=== PATIENT | female | born 1930 | race Two or more races ===

== ENCOUNTER 2016-09-14 19:00 | Inpatient (IN) | payer OTHER, MEDICAID ==
[~2016-09-14] VITALS: Ht 167.6 cm; Wt 82.4 kg
[~2016-09-14 19:00] MED LIST: ALLO300T2 PO; ATO40T PO; COLCPOW2 PO; DIL120C PO; HYDR25TA4 PO; INSUPOW SUBCUT; LIS10T PO; NITR0.4S29 SL; OMEP20TA PO; TEMA30CA PO
[2016-09-14 20:20] LABS: Basophils # (auto) 0 uL; Basophils % (auto) 0.3 % (0.0-2.0); Eosinophils # (auto) 0.2 uL; Eosinophils % (auto) 2.4 % (0.0-7.0); Hematocrit 39.8 % (36.0-46.0); Hemoglobin 12.9 g/dL (12.2-16.2); Lymphocytes # (auto) 1.8 uL; Lymphocytes % (auto) 18.8 % (10.0-50.0); Mean Corpuscular Hemoglobin 31.5 pg (28.0-32.0); Mean Corpuscular Hgb Conc. 32.5 g/dL (32.0-36.0); Mean Corpuscular Volume 97.2 fL (80.0-100.0); Mean Platelet Volume 8.5 fL (7.4-10.4); Monocytes # (auto) 0.7 uL; Monocytes % (auto) 6.9 % (0.0-12.0); Neutrophils # (auto) 6.9 uL; Neutrophils % (auto) 71.6 % (37.0-80.0); Platelet Count (auto) 252 10^3/uL (140-450); Red Cell Distribution Width 15.4 % (11.6-16.0); White Blood Cell 9.6 10^3/uL (4.4-10.8)
[2016-09-14 20:31] LABS: Albumin 3.3 g/dL (3.4-5.0); BUN/Creatinine Ratio 18.6; Calcium 9.1 mg/dL (8.5-10.1); Potassium 4.2 mmol/L (3.5-5.1)
[2016-09-14 20:34] LABS: Bilirubin, Total 0.2 mg/dL (0.2-1.0); Total Protein 7.1 g/dL (6.4-8.2)
[2016-09-14 20:35] LABS: INR 1.01 (0.9-1.15); Partial Thromboplastin Time 26.6 sec (22.64-33.71); Prothrombin Time 10.4 sec (9.37-12.3)
[2016-09-14 20:38] LABS: B-Type Natriuretic Peptide 65.59 pg/mL (0-100)
[2016-09-14 20:47] LABS: Temperature: 21.4 C (20.0-25.0)
[2016-09-15] VITALS (7 sets, daily range): BP systolic 114–140; BP diastolic 47–73
[2016-09-15] MEDS ORDERED: ONDANSETRON HCL 4 MG/2 ML VIAL IV PRN
[2016-09-15] MEDS ORDERED: DEXTROSE (50%) 50ML SYRG IV PRN
[2016-09-15] MEDS ORDERED: NITROGLYCERIN 0.4 MG SL TAB SL PRN
[2016-09-15] MEDS ORDERED: MORPHINE SULF INJ 2 MG/ML SYRINGE 1ML IV PRN
[2016-09-15] MEDS ORDERED: HYDROcodone-ACET 5/325MG TAB PO PRN
[2016-09-15] MEDS ORDERED: ACETAMINOPHEN 325 MG TAB PO PRN
[2016-09-15] MEDS: InsuLIN REG 1unit/0.01ml Soln (100units/ml) SC SCH ×4 (00:32→18:00)
[2016-09-15] MEDS: ACCU-CHEK COMFORT CURVE STRIP VI SCH ×4 (00:32→18:00)
[2016-09-15] MEDS ORDERED: NITR0.4S29 SL (04:03)
[2016-09-15 05:56] LABS: Potassium 4.4 mmol/L (3.5-5.1)
[2016-09-15 06:04] LABS: Basophils # (auto) 0 uL; Basophils % (auto) 0.6 % (0.0-2.0); Eosinophils # (auto) 0.3 uL; Eosinophils % (auto) 3.8 % (0.0-7.0); Hemoglobin 11.2 g/dL (12.2-16.2); Lymphocytes # (auto) 2.3 uL; Lymphocytes % (auto) 29.1 % (10.0-50.0); Mean Corpuscular Hemoglobin 31.4 pg (28.0-32.0); Mean Corpuscular Volume 98.3 fL (80.0-100.0); Mean Platelet Volume 8.9 fL (7.4-10.4); Monocytes # (auto) 0.6 uL; Monocytes % (auto) 7.3 % (0.0-12.0); Neutrophils # (auto) 4.6 uL; Neutrophils % (auto) 59.2 % (37.0-80.0); Platelet Count (auto) 221 10^3/uL (140-450); Red Cell Distribution Width 15.5 % (11.6-16.0); White Blood Cell 7.8 10^3/uL (4.4-10.8)
[2016-09-15 06:08] LABS: Albumin 2.8 g/dL (3.4-5.0); BUN/Creatinine Ratio 20.2; Calcium 8.3 mg/dL (8.5-10.1)
[2016-09-15 06:10] LABS: Bilirubin, Total 0.5 mg/dL (0.2-1.0)
[2016-09-15] MEDS ORDERED: LISINOPRIL 20 MG TAB PO SCH (10:00)
[2016-09-15] MEDS ORDERED: FAMOTIDINE 20 MG TAB PO SCH (10:00)
[2016-09-15] MEDS ORDERED: HCTZ 25 MG TAB PO SCH (10:00)
[2016-09-15] MEDS ORDERED: ALLOPURINOL 300 MG TAB PO SCH (10:00)
[2016-09-15] MEDS ORDERED: ENOXAPARIN SOD 40 MG/0.4 ML SYRINGE SC SCH (10:00)
[2016-09-15] MEDS ORDERED: DILTIAZEM HCL 120MG ER CAP PO SCH (10:00)
[2016-09-15] MEDS ORDERED: ATORVASTATIN 20 MG TAB PO SCH (22:00)
== END 2016-09-15 20:40 | disposition home or self-care (01) | DRG 309 ==
LOC: EDUNIT# 19:00 → ER 19:02 → TELE 19:03 → TELE-CENTR 09-15 01:15
PROVIDERS: ADMIT Nurse Practitioner; ATTEND Internal Medicine
DX: I47.1 Supraventricular tachycardia (principal); E44.0 Moderate protein-calorie malnutrition; E11.21 Type 2 diabetes mellitus with diabetic nephropathy; I35.0 Nonrheumatic aortic (valve) stenosis; K21.9 Gastro-esophageal reflux disease without esophagitis; M10.9 Gout, unspecified; E11.65 Type 2 diabetes mellitus with hyperglycemia; E11.22 Type 2 diabetes mellitus with diabetic chronic kidney disease; N18.3 Chronic kidney disease, stage 3 (moderate); E78.5 Hyperlipidemia, unspecified; D64.9 Anemia, unspecified; I25.10 Atherosclerotic heart disease of native coronary artery without angina pectoris; I12.9 Hypertensive chronic kidney disease with stage 1 through stage 4 chronic kidney disease, or unspecified chronic kidney disease; Z68.29 Body mass index [BMI] 29.0-29.9, adult; Z82.49 Family history of ischemic heart disease and other diseases of the circulatory system; Z83.3 Family history of diabetes mellitus; Z90.49 Acquired absence of other specified parts of digestive tract; Z79.899 Other long term (current) drug therapy; Z79.4 Long term (current) use of insulin; Z91.14 Patient's other noncompliance with medication regimen; Z80.9 Family history of malignant neoplasm, unspecified; Z84.89 Family history of other specified conditions
CPT/HCPCS: 36415; 71010; 80053; 82962; 83036; 83880; 84484; 85025; 85049; 85610; 85730; 87081; 93005; 93306

== ENCOUNTER 2016-12-24 02:13 | Inpatient (IN) | payer OTHER, MEDICAID ==
[~2016-12-24] VITALS: Ht 167.6 cm; Wt 84.5 kg
[2016-12-24 02:58] LABS: Basophils # (auto) 0 uL; Basophils % (auto) 0.6 % (0.0-2.0); Eosinophils # (auto) 0.2 uL; Eosinophils % (auto) 2.1 % (0.0-7.0); Hemoglobin 11.6 g/dL (12.2-16.2); Lymphocytes # (auto) 1.2 uL; Lymphocytes % (auto) 14.9 % (10.0-50.0); Mean Corpuscular Hemoglobin 31.5 pg (28.0-32.0); Mean Corpuscular Hgb Conc. 32.2 g/dL (32.0-36.0); Mean Corpuscular Volume 97.7 fL (80.0-100.0); Mean Platelet Volume 9.1 fL (7.4-10.4); Monocytes # (auto) 0.5 uL; Monocytes % (auto) 6.5 % (0.0-12.0); Neutrophils # (auto) 6.1 uL; Neutrophils % (auto) 75.9 % (37.0-80.0); Platelet Count (auto) 227 10^3/uL (140-450); Red Cell Distribution Width 18.8 % (11.6-16.0); White Blood Cell 8.1 10^3/uL (4.4-10.8)
[2016-12-24 03:31] LABS: Albumin 3.1 g/dL (3.4-5.0); Alkaline Phosphatase 150 U/L (45-117); Anion Gap 9 (5-15); Aspartate Aminotransferase 8 U/L (15-37); BUN/Creatinine Ratio 19.4; Bilirubin, Total 0.4 mg/dL (0.2-1.0); Blood Urea Nitrogen 27 mg/dL (7-18); Calcium 8.5 mg/dL (8.5-10.1); Carbon Dioxide 23 mmol/L (21-32); Chloride 109 mmol/L (98-107); GFR African American 46 mL/min; GFR Non-African American 38 mL/min; Glucose 177 mg/dL (74-106); Magnesium 2.3 mg/dL (1.6-2.6); Potassium 4.5 mmol/L (3.5-5.1); Sodium 141 mmol/L (136-145); Total Protein 6.6 g/dL (6.4-8.2)
[2016-12-24] MEDS ORDERED: NITROGLYCERIN 0.2MG/HR TOPICAL PATCH TD ONE (04:00)
[2016-12-24] MEDS ORDERED: ASPirin 81 mg TAB PO ONE (04:00)
[2016-12-24 04:42] LABS: B-Type Natriuretic Peptide 93.6 pg/mL (0-100); Temperature: 22.2 C (20.0-25.0)
[2016-12-24 04:43] LABS: INR 0.97 (0.9-1.15); Partial Thromboplastin Time 27.8 sec (22.64-33.71); Prothrombin Time 10.5 sec (9.37-12.3)
[2016-12-24 05:59] LABS: Urine Bilirubin Negative (Negative); Urine Blood Negative /uL (Negative); Urine Color Yellow (Yellow); Urine Glucose Normal (Normal); Urine Ketone Negative (Negative); Urine Nitrite Negative (Negative); Urine RBC 1 /hpf (0 - 4); Urine Squamous Epithelial Cell FEW /hpf (<5); Urine Urobilinogen Normal (Negative); Urine pH 5.5 (5.0-8.0)
[2016-12-24] MEDS ORDERED: LORazepam 0.5 MG TAB PO PRN (06:15)
[2016-12-24] MEDS ORDERED: LACTULOSE 20Gm/30ML SOLN PO PRN (06:15)
[2016-12-24] MEDS ORDERED: DEXTROSE (50%) 50ML SYRG IV PRN (06:15)
[2016-12-24] MEDS ORDERED: PROCHLORPERAZINE EDISYLATE 5 MG/ML 2ML VIAL IV PRN (06:15)
[2016-12-24] MEDS ORDERED: NITROGLYCERIN 0.4 MG SL TAB SL PRN (06:15)
[2016-12-24] MEDS ORDERED: MORPHINE SULF INJ 2 MG/ML SYRINGE 1ML IV PRN ×2 (06:15)
[2016-12-24] MEDS ORDERED: ACETAMINOPHEN 500 MG TAB PO PRN (06:15)
[2016-12-24] MEDS ORDERED: COLCHICINE PO PRN (06:15)
[2016-12-24] MEDS ORDERED: TEMAZEPAM 15 MG CAP PO PRN (06:15)
[2016-12-24] MEDS ORDERED: HYDROcodone-ACET 5/325MG TAB PO PRN (06:15)
[2016-12-24] MEDS: SODIUM CHLORIDE 0.9% 1,000 ML IV SCH ×4 (06:40→23:12)
[2016-12-24] MEDS: InsuLIN REG 1unit/0.01ml Soln (100units/ml) SC SCH ×4 (07:00→21:52)
[2016-12-24 08:50] VITALS: BP 145/76
[2016-12-24] MEDS ORDERED: COLCHICINE 0.6 MG CAP PO PRN (09:30)
[2016-12-24] MEDS ORDERED: METOPROLOL TARTRATE 25 MG TAB PO SCH (10:00)
[2016-12-24] MEDS ORDERED: DILTIAZEM HCL 120MG ER CAP PO SCH (10:00)
[2016-12-24] MEDS ORDERED: PATIENTS OWN MEDICATION (Omeprazole (Gnp Omeprazole) 1 TAB) PO SCH (10:00)
[2016-12-24] MEDS ORDERED: PATIENTS OWN MEDICATION (Atorvastatin Calcium (Lipitor) 1 TAB) PO SCH ×2 (10:00)
[2016-12-24] MEDS ORDERED: NITROGLYCERIN 0.2MG/HR TOPICAL PATCH TD SCH (10:00)
[2016-12-24] MEDS: ACCU-CHEK COMFORT CURVE STRIP VI SCH ×4 (10:00→21:52)
[2016-12-24] MEDS ORDERED: INSULIN SUBCUT SCH (10:00)
[2016-12-24] MEDS: ASPirin 81 mg TAB PO SCH (10:25)
[2016-12-24] MEDS: ALLOPURINOL 300 MG TAB PO SCH (10:25)
[2016-12-24] MEDS: LISINOPRIL 10 MG TAB PO SCH (10:26)
[2016-12-24] MEDS: PANTOPRAZOLE 40 MG TAB PO SCH (10:26)
[2016-12-24] MEDS: INSULIN NPH Isophane (HUMAN) 1unit/0.01ml Susp(100units/ml) SC SCH ×2 (10:27→21:52)
[2016-12-24] MEDS: ENOXAPARIN SOD 40 MG/0.4 ML SYRINGE SC SCH (10:27)
[2016-12-24] MEDS ORDERED: DILTIAZEM HCL 120MG ER CAP PO ONE (11:00)
[2016-12-24] MEDS ORDERED: cefTRIAXone 1GM/50ML D5W 50 ML IV ONE (11:15)
[2016-12-24 11:22] VITALS: BP 145/76
[2016-12-24 13:00] VITALS: BP 150/72
[2016-12-24 16:48] VITALS: BP 104/42
[2016-12-24 20:00] VITALS: BP 126/54
[2016-12-24] MEDS: ATORVASTATIN 20 MG TAB PO SCH (21:52)
[2016-12-24 22:00] VITALS: BP 126/54
[2016-12-25] VITALS (7 sets, daily range): BP systolic 120–153; BP diastolic 46–82
[2016-12-25 05:26] LABS: Basophils # (auto) 0 uL; Basophils % (auto) 0.4 % (0.0-2.0); Eosinophils # (auto) 0.4 uL; Eosinophils % (auto) 5.7 % (0.0-7.0); Hemoglobin 10.3 g/dL (12.2-16.2); Lymphocytes % (auto) 27.3 % (10.0-50.0); Mean Corpuscular Hemoglobin 31.3 pg (28.0-32.0); Mean Corpuscular Volume 97.6 fL (80.0-100.0); Mean Platelet Volume 8.8 fL (7.4-10.4); Monocytes # (auto) 0.6 uL; Monocytes % (auto) 7.7 % (0.0-12.0); Neutrophils # (auto) 4.3 uL; Neutrophils % (auto) 58.9 % (37.0-80.0); Platelet Count (auto) 212 10^3/uL (140-450); White Blood Cell 7.3 10^3/uL (4.4-10.8)
[2016-12-25 06:09] LABS: Albumin 2.7 g/dL (3.4-5.0); BUN/Creatinine Ratio 18.3; Bilirubin, Total 0.4 mg/dL (0.2-1.0); Potassium 4.5 mmol/L (3.5-5.1); Total Protein 5.8 g/dL (6.4-8.2)
[2016-12-25] MEDS: InsuLIN REG 1unit/0.01ml Soln (100units/ml) SC SCH ×4 (06:45→21:51)
[2016-12-25] MEDS: ACCU-CHEK COMFORT CURVE STRIP VI SCH ×4 (06:45→21:51)
[2016-12-25] MEDS ORDERED: ADENOSINE 71 MG in GIVE UN-DILUTED 0 ML IV STA (08:14)
[2016-12-25] MEDS: cefTRIAXone 1GM/50ML D5W 50 ML IV SCH (08:30)
[2016-12-25] MEDS: ASPirin 81 mg TAB PO SCH (11:16)
[2016-12-25] MEDS: LISINOPRIL 10 MG TAB PO SCH (11:17)
[2016-12-25] MEDS: PANTOPRAZOLE 40 MG TAB PO SCH (11:17)
[2016-12-25] MEDS: ALLOPURINOL 300 MG TAB PO SCH (11:18)
[2016-12-25] MEDS: DILTIAZEM HCL 120MG ER CAP PO SCH (11:18)
[2016-12-25] MEDS: ENOXAPARIN SOD 40 MG/0.4 ML SYRINGE SC SCH (11:18)
[2016-12-25] MEDS: INSULIN NPH Isophane (HUMAN) 1unit/0.01ml Susp(100units/ml) SC SCH ×2 (11:19→21:52)
[2016-12-25] MEDS: ATORVASTATIN 20 MG TAB PO SCH (21:51)
[2016-12-26 04:32] VITALS: BP 118/53
[2016-12-26] MEDS: ACCU-CHEK COMFORT CURVE STRIP VI SCH ×4 (06:46→21:51)
[2016-12-26] MEDS: InsuLIN REG 1unit/0.01ml Soln (100units/ml) SC SCH ×4 (06:46→21:50)
[2016-12-26 08:07] VITALS: BP 158/78
[2016-12-26] MEDS: cefTRIAXone 1GM/50ML D5W 50 ML IV SCH (09:17)
[2016-12-26] MEDS: DILTIAZEM HCL 120MG ER CAP PO SCH (09:51)
[2016-12-26] MEDS: ENOXAPARIN SOD 40 MG/0.4 ML SYRINGE SC SCH (09:51)
[2016-12-26] MEDS: ASPirin 81 mg TAB PO SCH (09:52)
[2016-12-26] MEDS: ALLOPURINOL 300 MG TAB PO SCH (09:52)
[2016-12-26] MEDS: LISINOPRIL 10 MG TAB PO SCH (09:52)
[2016-12-26] MEDS: PANTOPRAZOLE 40 MG TAB PO SCH (09:52)
[2016-12-26] MEDS: INSULIN NPH Isophane (HUMAN) 1unit/0.01ml Susp(100units/ml) SC SCH ×2 (10:24→21:51)
[2016-12-26 12:16] VITALS: BP 129/71
[2016-12-26 16:42] VITALS: BP 147/69
[2016-12-26 21:39] VITALS: BP 141/64
[2016-12-26] MEDS: ATORVASTATIN 20 MG TAB PO SCH (21:49)
[2016-12-27 05:00] VITALS: BP 130/61
[2016-12-27 05:46] LABS: Basophils # (auto) 0 uL; Basophils % (auto) 0.4 % (0.0-2.0); Eosinophils # (auto) 0.4 uL; Eosinophils % (auto) 5.2 % (0.0-7.0); Hematocrit 33.8 % (36.0-46.0); Lymphocytes % (auto) 25.4 % (10.0-50.0); Mean Corpuscular Hemoglobin 31.6 pg (28.0-32.0); Mean Corpuscular Hgb Conc. 32.5 g/dL (32.0-36.0); Mean Corpuscular Volume 97.1 fL (80.0-100.0); Mean Platelet Volume 9.6 fL (7.4-10.4); Monocytes # (auto) 0.5 uL; Neutrophils # (auto) 4.8 uL; Platelet Count (auto) 223 10^3/uL (140-450); White Blood Cell 7.7 10^3/uL (4.4-10.8)
[2016-12-27 06:03] LABS: Calcium 8.6 mg/dL (8.5-10.1); Magnesium 1.9 mg/dL (1.6-2.6); Potassium 4.4 mmol/L (3.5-5.1)
[2016-12-27 06:06] LABS: BUN/Creatinine Ratio 17.5
[2016-12-27] MEDS: ACCU-CHEK COMFORT CURVE STRIP VI SCH (06:31)
[2016-12-27] MEDS: InsuLIN REG 1unit/0.01ml Soln (100units/ml) SC SCH (06:31)
[2016-12-27 09:00] VITALS: BP 150/62
[2016-12-27] MEDS: cefTRIAXone 1GM/50ML D5W 50 ML IV SCH (09:00)
[2016-12-27] MEDS: ALLOPURINOL 300 MG TAB PO SCH (09:50)
[2016-12-27] MEDS: LISINOPRIL 10 MG TAB PO SCH (09:52)
[2016-12-27] MEDS: ASPirin 81 mg TAB PO SCH (09:52)
[2016-12-27] MEDS: DILTIAZEM HCL 120MG ER CAP PO SCH (09:52)
[2016-12-27] MEDS: ENOXAPARIN SOD 40 MG/0.4 ML SYRINGE SC SCH (09:53)
[2016-12-27] MEDS: INSULIN NPH Isophane (HUMAN) 1unit/0.01ml Susp(100units/ml) SC SCH (10:04)
[2016-12-27] MEDS: PANTOPRAZOLE 40 MG TAB PO SCH (10:04)
[2016-12-27] MEDS ORDERED: ASPI81CH43 PO (11:05)
[2016-12-27] MEDS ORDERED: DIL120C PO (11:05)
[2016-12-27 11:22] VITALS: BP 150/62
== END 2016-12-27 14:29 | disposition home or self-care (01) | DRG 309 ==
LOC: ER 02:13 → TELE-CENTR 02:14
PROVIDERS: ADMIT Internal Medicine; ATTEND Family Medicine
DX: I47.1 Supraventricular tachycardia (principal); N39.0 Urinary tract infection, site not specified; E44.0 Moderate protein-calorie malnutrition; D63.8 Anemia in other chronic diseases classified elsewhere; E11.22 Type 2 diabetes mellitus with diabetic chronic kidney disease; I12.9 Hypertensive chronic kidney disease with stage 1 through stage 4 chronic kidney disease, or unspecified chronic kidney disease; N18.3 Chronic kidney disease, stage 3 (moderate); I35.0 Nonrheumatic aortic (valve) stenosis; E11.65 Type 2 diabetes mellitus with hyperglycemia; E78.5 Hyperlipidemia, unspecified; K21.9 Gastro-esophageal reflux disease without esophagitis; M10.9 Gout, unspecified; E66.01 Morbid (severe) obesity due to excess calories; I25.10 Atherosclerotic heart disease of native coronary artery without angina pectoris; E11.21 Type 2 diabetes mellitus with diabetic nephropathy; R74.8 Abnormal levels of other serum enzymes; R79.89 Other specified abnormal findings of blood chemistry; Z82.49 Family history of ischemic heart disease and other diseases of the circulatory system; Z83.3 Family history of diabetes mellitus; Z68.30 Body mass index [BMI] 30.0-30.9, adult; Z90.49 Acquired absence of other specified parts of digestive tract; Z79.899 Other long term (current) drug therapy
CPT/HCPCS: 36415; 71010; 78452; 80048; 80053; 80061; 81001; 82550; 82962; 83036; 83735; 83880; 84443; 84484; 85025; 85379; 85610; 85652; 85730; 86141; 87081; 87086; 93005; 93017; 93970; 94761; J0153; J0696; J1815

== ENCOUNTER 2017-03-16 15:01 | Inpatient (IN) | payer OTHER, MEDICAID ==
[~2017-03-16] VITALS: Ht 157.5 cm; Wt 79.0 kg
[~2017-03-16 15:01] MED LIST changes: +ASPI81CH43 PO
[2017-03-16] MEDS ORDERED: SODIUM CHLORIDE 0.9% 1,000 ML IV ONE (15:03)
[2017-03-16] MEDS ORDERED: LORazepam 2MG/ML-1ML VIAL IV ONE (15:15)
[2017-03-16 15:46] LABS: Basophils # (auto) 0 uL; Basophils % (auto) 0.3 % (0.0-2.0); CONDITION Y; Eosinophils # (auto) 0.3 uL; Eosinophils % (auto) 3.5 % (0.0-7.0); Hemoglobin 11.5 g/dL (12.2-16.2); Lymphocytes # (auto) 1.4 uL; Mean Corpuscular Hemoglobin 32.7 pg (28.0-32.0); Mean Corpuscular Volume 99.2 fL (80.0-100.0); Mean Platelet Volume 9.2 fL (7.4-10.4); Monocytes # (auto) 0.4 uL; Monocytes % (auto) 5.7 % (0.0-12.0); Neutrophils # (auto) 5.5 uL; Neutrophils % (auto) 72.5 % (37.0-80.0); Platelet Count (auto) 227 10^3/uL (140-450); Red Cell Distribution Width 17.4 % (11.6-16.0); White Blood Cell 7.6 10^3/uL (4.4-10.8)
[2017-03-16 16:15] LABS: INR 0.95 (0.9-1.15); Partial Thromboplastin Time 28.5 sec (22.64-33.71); Prothrombin Time 10.4 sec (9.37-12.3)
[2017-03-16 16:17] LABS: B-Type Natriuretic Peptide 126.91 pg/mL (0-100)
[2017-03-16 16:20] LABS: Alkaline Phosphatase 141 U/L (45-117); Anion Gap 9 (5-15); Aspartate Aminotransferase 8 U/L (15-37); BUN/Creatinine Ratio 24.2; Bilirubin, Total 0.3 mg/dL (0.2-1.0); Blood Urea Nitrogen 29 mg/dL (7-18); Calcium 8.4 mg/dL (8.5-10.1); Carbon Dioxide 20 mmol/L (21-32); Chloride 113 mmol/L (98-107); GFR African American 55 mL/min; GFR Non-African American 45 mL/min; Glucose 150 mg/dL (74-106); Potassium 4.3 mmol/L (3.5-5.1); Sodium 142 mmol/L (136-145); Total Protein 6.5 g/dL (6.4-8.2)
[2017-03-16 16:30] LABS: Temperature: 24.6 C (20.0-25.0)
[2017-03-16] MEDS ORDERED: ONDANSETRON HCL 4 MG/2 ML VIAL IV PRN (19:00)
[2017-03-16] MEDS ORDERED: MORPHINE SULF INJ 2 MG/ML SYRINGE 1ML IV PRN ×2 (19:00)
[2017-03-16] MEDS ORDERED: LORazepam 0.5 MG TAB PO PRN (19:00)
[2017-03-16] MEDS ORDERED: ZOLPIDEM TARTRATE 5 MG TAB PO PRN (19:00)
[2017-03-16] MEDS ORDERED: ALUM & MAG HYDROX-SIMETH LIQ(MAALOX) 30 ML PO ONE (19:00)
[2017-03-16] MEDS ORDERED: DEXTROSE (50%) 50ML SYRG IV PRN (19:00)
[2017-03-16] MEDS ORDERED: ACETAMINOPHEN 325 MG TAB PO PRN (19:00)
[2017-03-16] MEDS ORDERED: NITROGLYCERIN 0.4 MG SL TAB SL PRN ×2 (19:00)
[2017-03-16] MEDS: InsuLIN REG 1unit/0.01ml Soln (100units/ml) SC SCH (22:00)
[2017-03-16] MEDS: SODIUM CHLOR 0.9% PF (SALINE LOCK) 10ML VIAL IV SCH (22:11)
[2017-03-16] MEDS: CARVEDILOL 3.125 MG TAB PO SCH (22:17)
[2017-03-16] MEDS: ATORVASTATIN 20 MG TAB PO SCH (22:17)
[2017-03-16] MEDS: ACCU-CHEK COMFORT CURVE STRIP VI SCH (22:18)
[2017-03-16 22:50] VITALS: BP 95/37
[2017-03-16 23:00] VITALS: BP 122/51
[2017-03-17] VITALS (7 sets, daily range): BP systolic 106–144; BP diastolic 45–79
[2017-03-17 06:36] LABS: Basophils # (auto) 0 uL; Basophils % (auto) 0.2 % (0.0-2.0); CONDITION Y; Eosinophils # (auto) 0.4 uL; Eosinophils % (auto) 5.8 % (0.0-7.0); Hematocrit 31.6 % (36.0-46.0); Hemoglobin 10.4 g/dL (12.2-16.2); Lymphocytes % (auto) 27.7 % (10.0-50.0); Mean Corpuscular Hemoglobin 32.3 pg (28.0-32.0); Mean Corpuscular Hgb Conc. 32.7 g/dL (32.0-36.0); Mean Corpuscular Volume 98.9 fL (80.0-100.0); Mean Platelet Volume 9.2 fL (7.4-10.4); Monocytes # (auto) 0.5 uL; Monocytes % (auto) 6.3 % (0.0-12.0); Neutrophils # (auto) 4.4 uL; Platelet Count (auto) 205 10^3/uL (140-450); Red Cell Distribution Width 17.1 % (11.6-16.0); White Blood Cell 7.4 10^3/uL (4.4-10.8)
[2017-03-17] MEDS: InsuLIN REG 1unit/0.01ml Soln (100units/ml) SC SCH ×4 (07:00→22:00)
[2017-03-17] MEDS: ACCU-CHEK COMFORT CURVE STRIP VI SCH ×4 (07:00→22:00)
[2017-03-17] MEDS: INSULIN NPH Isophane (HUMAN) 1unit/0.01ml Susp(100units/ml) SC SCH ×2 (07:00→18:15)
[2017-03-17 07:02] LABS: Albumin 2.6 g/dL (3.4-5.0); BUN/Creatinine Ratio 21.6; Bilirubin, Total 0.4 mg/dL (0.2-1.0); Calcium 8.1 mg/dL (8.5-10.1); Potassium 4.5 mmol/L (3.5-5.1); Total Protein 5.7 g/dL (6.4-8.2)
[2017-03-17] MEDS: SODIUM CHLOR 0.9% PF (SALINE LOCK) 10ML VIAL IV SCH ×3 (07:35→22:00)
[2017-03-17] MEDS ORDERED: CLOPIDOGREL BISULFATE 75 MG TAB PO SCH (10:00)
[2017-03-17] MEDS: ASPirin 81 mg TAB PO SCH (10:58)
[2017-03-17] MEDS: PANTOPRAZOLE 40 MG TAB PO SCH (10:59)
[2017-03-17] MEDS: CARVEDILOL 3.125 MG TAB PO SCH ×2 (10:59→23:01)
[2017-03-17] MEDS: DOCUSATE SOD 100 MG CAP PO SCH (11:00)
[2017-03-17] MEDS: HCTZ 25 MG TAB PO SCH (11:00)
[2017-03-17] MEDS: DILTIAZEM HCL 120MG ER CAP PO SCH (11:01)
[2017-03-17] MEDS: COLCHICINE 0.6 MG CAP PO SCH (11:01)
[2017-03-17] MEDS: ALLOPURINOL 300 MG TAB PO SCH (11:01)
[2017-03-17] MEDS: Boost Glucose Control 8 Ounces PO SCH ×3 (11:02→18:14)
[2017-03-17] MEDS: LISINOPRIL 10 MG TAB PO SCH (12:06)
[2017-03-17] MEDS ORDERED: SODIUM CHLORIDE 0.9% 1,000 ML IV SCH (17:08)
[2017-03-17] MEDS: SODIUM CHLORIDE 0.9% 1,000 ML IV SCH (18:14)
[2017-03-17] MEDS: ATORVASTATIN 20 MG TAB PO SCH (23:01)
[2017-03-18 05:50] VITALS: BP 139/78
[2017-03-18] MEDS: InsuLIN REG 1unit/0.01ml Soln (100units/ml) SC SCH ×4 (06:09→22:00)
[2017-03-18] MEDS: SODIUM CHLOR 0.9% PF (SALINE LOCK) 10ML VIAL IV SCH ×3 (06:09→22:00)
[2017-03-18] MEDS: INSULIN NPH Isophane (HUMAN) 1unit/0.01ml Susp(100units/ml) SC SCH ×2 (06:10→19:07)
[2017-03-18] MEDS: ACCU-CHEK COMFORT CURVE STRIP VI SCH ×4 (06:10→22:00)
[2017-03-18] MEDS: SODIUM CHLORIDE 0.9% 1,000 ML IV SCH (06:11)
[2017-03-18 06:45] LABS: Basophils # (auto) 0 uL; Basophils % (auto) 0.4 % (0.0-2.0); CONDITION Y; Eosinophils # (auto) 0.5 uL; Eosinophils % (auto) 7.1 % (0.0-7.0); Hematocrit 33.2 % (36.0-46.0); Hemoglobin 10.9 g/dL (12.2-16.2); Lymphocytes # (auto) 2.2 uL; Lymphocytes % (auto) 30.2 % (10.0-50.0); Mean Corpuscular Hemoglobin 32.6 pg (28.0-32.0); Mean Corpuscular Hgb Conc. 32.8 g/dL (32.0-36.0); Mean Corpuscular Volume 99.4 fL (80.0-100.0); Mean Platelet Volume 9.6 fL (7.4-10.4); Monocytes # (auto) 0.4 uL; Monocytes % (auto) 6.1 % (0.0-12.0); Neutrophils # (auto) 4.1 uL; Neutrophils % (auto) 56.2 % (37.0-80.0); Platelet Count (auto) 221 10^3/uL (140-450); Red Cell Distribution Width 17.3 % (11.6-16.0); White Blood Cell 7.3 10^3/uL (4.4-10.8)
[2017-03-18] MEDS ORDERED: IOHEXOL 350 MG/ML 100ML IJ ONE (06:54)
[2017-03-18] MEDS ORDERED: LIDOCAINE 2%HCL (LOCAL ANESTH.) INJ 20ML MDV ONE (06:55)
[2017-03-18] MEDS ORDERED: fentaNYL CITRATE 100 MCG/2 ML VL ONE (07:35)
[2017-03-18] MEDS ORDERED: ANGIOMAX 250 MG VIAL IV ONE (07:35)
[2017-03-18] MEDS ORDERED: MIDAZOLAM HCL 1MG/1ML-2 ML VIAL ONE (07:35)
[2017-03-18] MEDS ORDERED: SODIUM CHL 0.9% 0 ML ONE (07:36)
[2017-03-18 07:40] LABS: Albumin 2.9 g/dL (3.4-5.0); BUN/Creatinine Ratio 26.9; Bilirubin, Total 0.4 mg/dL (0.2-1.0); Calcium 8.4 mg/dL (8.5-10.1); Potassium 4.3 mmol/L (3.5-5.1); Total Protein 6.2 g/dL (6.4-8.2)
[2017-03-18] MEDS ORDERED: EPTIFIBATIDE INJ (2MG/ML) 10ML VIAL IV ONE (07:42)
[2017-03-18] MEDS ORDERED: VERAPAMIL 2.5MG/ML INJ 2ML VIAL IV ONE ×2 (07:43→08:24)
[2017-03-18] MEDS ORDERED: HEPARIN 1,000 UNITS/ml 1ML VIAL ONE (07:44)
[2017-03-18] MEDS: Boost Glucose Control 8 Ounces PO SCH ×3 (08:00→18:28)
[2017-03-18] MEDS ORDERED: SODIUM CHLORIDE 0.9% 1,000 ML IV ONE (09:15)
[2017-03-18] MEDS: COLCHICINE 0.6 MG CAP PO SCH (11:01)
[2017-03-18] MEDS: ASPirin 81 mg TAB PO SCH (11:01)
[2017-03-18] MEDS: DOCUSATE SOD 100 MG CAP PO SCH (11:02)
[2017-03-18] MEDS: LISINOPRIL 10 MG TAB PO SCH (11:02)
[2017-03-18] MEDS: PANTOPRAZOLE 40 MG TAB PO SCH (11:02)
[2017-03-18] MEDS: ALLOPURINOL 300 MG TAB PO SCH (11:02)
[2017-03-18] MEDS: DILTIAZEM HCL 120MG ER CAP PO SCH (11:03)
[2017-03-18] MEDS: HCTZ 25 MG TAB PO SCH (11:03)
[2017-03-18] MEDS: CARVEDILOL 3.125 MG TAB PO SCH ×2 (11:03→23:14)
[2017-03-18 13:00] VITALS: BP 133/78
[2017-03-18 17:00] VITALS: BP 105/65
[2017-03-18 22:00] VITALS: BP 148/78
[2017-03-18] MEDS: ATORVASTATIN 20 MG TAB PO SCH (23:14)
[2017-03-19 05:00] VITALS: BP 138/63
[2017-03-19] MEDS: SODIUM CHLOR 0.9% PF (SALINE LOCK) 10ML VIAL IV SCH ×3 (06:00→22:00)
[2017-03-19 06:09] LABS: Hematocrit 31.1 % (36.0-46.0); Hemoglobin 10.4 g/dL (12.2-16.2)
[2017-03-19 06:22] LABS: Calcium 7.9 mg/dL (8.5-10.1); Potassium 4.1 mmol/L (3.5-5.1)
[2017-03-19] MEDS: InsuLIN REG 1unit/0.01ml Soln (100units/ml) SC SCH ×4 (07:00→22:00)
[2017-03-19] MEDS: ACCU-CHEK COMFORT CURVE STRIP VI SCH ×4 (07:08→22:00)
[2017-03-19] MEDS: INSULIN NPH Isophane (HUMAN) 1unit/0.01ml Susp(100units/ml) SC SCH ×2 (07:08→17:59)
[2017-03-19 07:58] VITALS: BP 146/69
[2017-03-19 08:00] VITALS: BP 146/69
[2017-03-19] MEDS: Boost Glucose Control 8 Ounces PO SCH ×3 (08:00→17:54)
[2017-03-19] MEDS: ASPirin 81 mg TAB PO SCH (10:18)
[2017-03-19] MEDS: ALLOPURINOL 300 MG TAB PO SCH (10:18)
[2017-03-19] MEDS: COLCHICINE 0.6 MG CAP PO SCH (10:19)
[2017-03-19] MEDS: DOCUSATE SOD 100 MG CAP PO SCH (10:19)
[2017-03-19] MEDS: HCTZ 25 MG TAB PO SCH (10:19)
[2017-03-19] MEDS: DILTIAZEM HCL 120MG ER CAP PO SCH (10:19)
[2017-03-19] MEDS: CARVEDILOL 3.125 MG TAB PO SCH ×2 (10:20→22:44)
[2017-03-19] MEDS: PANTOPRAZOLE 40 MG TAB PO SCH (10:20)
[2017-03-19] MEDS: LISINOPRIL 10 MG TAB PO SCH (10:21)
[2017-03-19] MEDS ORDERED: LIDOCAINE VISCOUS 2% 15ML UD PO ONE (10:45)
[2017-03-19] MEDS ORDERED: fentaNYL CITRATE 100 MCG/2 ML VL IV ONE (10:45)
[2017-03-19] MEDS ORDERED: MIDAZOLAM HCL 1MG/1ML-2 ML VIAL IV ONE ×2 (10:45)
[2017-03-19] MEDS ORDERED: NALOXONE HCL 0.4 MG/ML VIAL ONE (11:11)
[2017-03-19] MEDS ORDERED: FLUMAZENIL 0.1 MG/ML INJ 10ML MDV IV ONE (11:11)
[2017-03-19 12:01] VITALS: BP 138/54
[2017-03-19 16:05] VITALS: BP 121/66
[2017-03-19] MEDS: SODIUM CHLORIDE 0.9% 1,000 ML IV SCH (20:30)
[2017-03-19 22:00] VITALS: BP 167/77
[2017-03-19] MEDS: ATORVASTATIN 20 MG TAB PO SCH (22:43)
[2017-03-20] MEDS: SODIUM CHLORIDE 0.9% 1,000 ML IV SCH ×2 (04:56→14:09)
[2017-03-20 05:00] VITALS: BP 143/76
[2017-03-20] MEDS: SODIUM CHLOR 0.9% PF (SALINE LOCK) 10ML VIAL IV SCH ×3 (06:14→21:00)
[2017-03-20] MEDS: InsuLIN REG 1unit/0.01ml Soln (100units/ml) SC SCH ×4 (06:14→21:20)
[2017-03-20] MEDS: INSULIN NPH Isophane (HUMAN) 1unit/0.01ml Susp(100units/ml) SC SCH ×2 (06:20→17:30)
[2017-03-20] MEDS: ACCU-CHEK COMFORT CURVE STRIP VI SCH ×4 (06:20→21:20)
[2017-03-20 08:00] VITALS: BP 150/84
[2017-03-20 08:08] VITALS: BP 134/50
[2017-03-20] MEDS: ASPirin 81 mg TAB PO SCH (10:32)
[2017-03-20] MEDS: Boost Glucose Control 8 Ounces PO SCH ×2 (10:32→12:28)
[2017-03-20] MEDS: DILTIAZEM HCL 120MG ER CAP PO SCH (10:33)
[2017-03-20] MEDS: COLCHICINE 0.6 MG CAP PO SCH (10:33)
[2017-03-20] MEDS: DOCUSATE SOD 100 MG CAP PO SCH (10:33)
[2017-03-20] MEDS: CARVEDILOL 3.125 MG TAB PO SCH ×2 (10:34→21:55)
[2017-03-20] MEDS: PANTOPRAZOLE 40 MG TAB PO SCH (10:34)
[2017-03-20] MEDS: HCTZ 25 MG TAB PO SCH (10:34)
[2017-03-20] MEDS: ALLOPURINOL 300 MG TAB PO SCH (10:35)
[2017-03-20] MEDS: LISINOPRIL 10 MG TAB PO SCH (10:35)
[2017-03-20 13:09] VITALS: BP 137/62
[2017-03-20 17:19] VITALS: BP 140/64
[2017-03-20] MEDS: ATORVASTATIN 20 MG TAB PO SCH (21:54)
[2017-03-20 22:00] VITALS: BP 144/69
[2017-03-21] MEDS: SODIUM CHLORIDE 0.9% 1,000 ML IV SCH ×3 (00:31→20:39)
[2017-03-21 05:00] VITALS: BP 157/71
[2017-03-21 05:23] LABS: Basophils # (auto) 0 uL; Basophils % (auto) 0.2 % (0.0-2.0); CONDITION Y; Eosinophils # (auto) 0.4 uL; Eosinophils % (auto) 4.8 % (0.0-7.0); Hematocrit 30.9 % (36.0-46.0); Hemoglobin 10.1 g/dL (12.2-16.2); Lymphocytes % (auto) 22.4 % (10.0-50.0); Mean Corpuscular Hemoglobin 32.2 pg (28.0-32.0); Mean Corpuscular Hgb Conc. 32.6 g/dL (32.0-36.0); Mean Corpuscular Volume 98.8 fL (80.0-100.0); Mean Platelet Volume 9.6 fL (7.4-10.4); Monocytes # (auto) 0.6 uL; Monocytes % (auto) 6.8 % (0.0-12.0); Neutrophils % (auto) 65.8 % (37.0-80.0); Platelet Count (auto) 187 10^3/uL (140-450); Red Cell Distribution Width 17.3 % (11.6-16.0); White Blood Cell 9.1 10^3/uL (4.4-10.8)
[2017-03-21] MEDS: SODIUM CHLOR 0.9% PF (SALINE LOCK) 10ML VIAL IV SCH ×3 (05:27→21:07)
[2017-03-21 05:43] LABS: Albumin 2.9 g/dL (3.4-5.0); BUN/Creatinine Ratio 25.4; Bilirubin, Total 0.3 mg/dL (0.2-1.0); Potassium 4.3 mmol/L (3.5-5.1)
[2017-03-21] MEDS: InsuLIN REG 1unit/0.01ml Soln (100units/ml) SC SCH ×4 (06:21→21:07)
[2017-03-21] MEDS: ACCU-CHEK COMFORT CURVE STRIP VI SCH ×4 (06:40→21:08)
[2017-03-21] MEDS: INSULIN NPH Isophane (HUMAN) 1unit/0.01ml Susp(100units/ml) SC SCH ×2 (06:40→16:59)
[2017-03-21 08:00] VITALS: BP 157/71
[2017-03-21] MEDS: DOCUSATE SOD 100 MG CAP PO SCH (09:48)
[2017-03-21] MEDS: ASPirin 81 mg TAB PO SCH (09:48)
[2017-03-21] MEDS: ALLOPURINOL 300 MG TAB PO SCH (09:48)
[2017-03-21] MEDS: LISINOPRIL 10 MG TAB PO SCH (09:49)
[2017-03-21] MEDS: DILTIAZEM HCL 120MG ER CAP PO SCH (09:50)
[2017-03-21] MEDS: PANTOPRAZOLE 40 MG TAB PO SCH (09:50)
[2017-03-21] MEDS: COLCHICINE 0.6 MG CAP PO SCH (09:50)
[2017-03-21] MEDS: HCTZ 25 MG TAB PO SCH (09:50)
[2017-03-21 09:51] VITALS: BP 116/64
[2017-03-21] MEDS: CARVEDILOL 3.125 MG TAB PO SCH ×2 (09:51→21:07)
[2017-03-21] MEDS: Boost Glucose Control 8 Ounces PO SCH ×3 (11:51→21:07)
[2017-03-21 13:00] VITALS: BP 127/64
[2017-03-21 17:17] VITALS: BP 145/60
[2017-03-21] MEDS: ATORVASTATIN 20 MG TAB PO SCH (21:07)
[2017-03-21 21:48] VITALS: BP 175/63
[2017-03-22 05:00] VITALS: BP 138/70
[2017-03-22 06:19] LABS: Basophils # (auto) 0 uL; Basophils % (auto) 0.3 % (0.0-2.0); CONDITION Y; Eosinophils # (auto) 0.3 uL; Eosinophils % (auto) 3.2 % (0.0-7.0); Hematocrit 30.6 % (36.0-46.0); Hemoglobin 10.4 g/dL (12.2-16.2); Lymphocytes # (auto) 1.6 uL; Lymphocytes % (auto) 16.1 % (10.0-50.0); Mean Corpuscular Hemoglobin 33.4 pg (28.0-32.0); Mean Corpuscular Hgb Conc. 34.1 g/dL (32.0-36.0); Mean Corpuscular Volume 98.1 fL (80.0-100.0); Mean Platelet Volume 9.4 fL (7.4-10.4); Monocytes # (auto) 0.8 uL; Monocytes % (auto) 7.8 % (0.0-12.0); Neutrophils # (auto) 7.1 uL; Neutrophils % (auto) 72.6 % (37.0-80.0); Platelet Count (auto) 197 10^3/uL (140-450); Red Cell Distribution Width 17.1 % (11.6-16.0); White Blood Cell 9.7 10^3/uL (4.4-10.8)
[2017-03-22 06:27] LABS: Albumin 2.7 g/dL (3.4-5.0); Anion Gap 9 (5-15); Aspartate Aminotransferase 8 U/L (15-37); BUN/Creatinine Ratio 26.5; Blood Urea Nitrogen 27 mg/dL (7-18); Calcium 7.8 mg/dL (8.5-10.1); Carbon Dioxide 21 mmol/L (21-32); Chloride 114 mmol/L (98-107); GFR African American 66 mL/min; GFR Non-African American 54 mL/min; Glucose 85 mg/dL (74-106); Potassium 4.2 mmol/L (3.5-5.1); Sodium 144 mmol/L (136-145)
[2017-03-22 06:31] LABS: Alkaline Phosphatase 133 U/L (45-117); Bilirubin, Total 0.5 mg/dL (0.2-1.0)
[2017-03-22] MEDS: SODIUM CHLOR 0.9% PF (SALINE LOCK) 10ML VIAL IV SCH ×3 (06:31→21:28)
[2017-03-22] MEDS: Boost Glucose Control 8 Ounces PO SCH ×4 (06:31→21:28)
[2017-03-22] MEDS: InsuLIN REG 1unit/0.01ml Soln (100units/ml) SC SCH ×4 (06:32→21:30)
[2017-03-22] MEDS: INSULIN NPH Isophane (HUMAN) 1unit/0.01ml Susp(100units/ml) SC SCH ×2 (06:32→18:00)
[2017-03-22] MEDS: ACCU-CHEK COMFORT CURVE STRIP VI SCH ×4 (06:32→21:28)
[2017-03-22] MEDS: SODIUM CHLORIDE 0.9% 1,000 ML IV SCH ×2 (06:32→16:45)
[2017-03-22 08:50] VITALS: BP 123/50
[2017-03-22] MEDS: DILTIAZEM HCL 120MG ER CAP PO SCH (10:00)
[2017-03-22] MEDS: DOCUSATE SOD 100 MG CAP PO SCH (10:00)
[2017-03-22] MEDS: HCTZ 25 MG TAB PO SCH (10:00)
[2017-03-22] MEDS: LISINOPRIL 10 MG TAB PO SCH (10:00)
[2017-03-22] MEDS: PANTOPRAZOLE 40 MG TAB PO SCH (10:01)
[2017-03-22] MEDS: ASPirin 81 mg TAB PO SCH (10:02)
[2017-03-22] MEDS: ALLOPURINOL 300 MG TAB PO SCH (10:02)
[2017-03-22] MEDS: COLCHICINE 0.6 MG CAP PO SCH (10:02)
[2017-03-22] MEDS: CARVEDILOL 3.125 MG TAB PO SCH ×2 (10:05→21:29)
[2017-03-22 13:00] VITALS: BP 144/69
[2017-03-22 17:00] VITALS: BP 172/80
[2017-03-22 18:00] VITALS: BP 137/60
[2017-03-22] MEDS: ATORVASTATIN 20 MG TAB PO SCH (21:30)
[2017-03-23] MEDS: SODIUM CHLORIDE 0.9% 1,000 ML IV SCH ×2 (02:30→18:43)
[2017-03-23] MEDS: Boost Glucose Control 8 Ounces PO SCH ×4 (05:21→22:00)
[2017-03-23] MEDS: SODIUM CHLOR 0.9% PF (SALINE LOCK) 10ML VIAL IV SCH ×3 (05:21→22:23)
[2017-03-23 05:33] VITALS: BP 140/52
[2017-03-23 06:10] LABS: Basophils # (auto) 0 uL; Basophils % (auto) 0.3 % (0.0-2.0); CONDITION Y; Eosinophils # (auto) 0.3 uL; Eosinophils % (auto) 3.3 % (0.0-7.0); Hematocrit 30.3 % (36.0-46.0); Lymphocytes # (auto) 1.4 uL; Lymphocytes % (auto) 16.3 % (10.0-50.0); Mean Corpuscular Hemoglobin 32.6 pg (28.0-32.0); Mean Corpuscular Volume 98.8 fL (80.0-100.0); Mean Platelet Volume 9.3 fL (7.4-10.4); Monocytes # (auto) 0.8 uL; Neutrophils # (auto) 6.3 uL; Neutrophils % (auto) 71.1 % (37.0-80.0); Platelet Count (auto) 207 10^3/uL (140-450); Red Cell Distribution Width 17.6 % (11.6-16.0); White Blood Cell 8.9 10^3/uL (4.4-10.8)
[2017-03-23] MEDS: ACCU-CHEK COMFORT CURVE STRIP VI SCH ×4 (06:14→22:24)
[2017-03-23] MEDS: INSULIN NPH Isophane (HUMAN) 1unit/0.01ml Susp(100units/ml) SC SCH ×2 (06:14→18:00)
[2017-03-23] MEDS: InsuLIN REG 1unit/0.01ml Soln (100units/ml) SC SCH ×4 (06:14→22:00)
[2017-03-23 06:56] LABS: Albumin 2.7 g/dL (3.4-5.0); BUN/Creatinine Ratio 21.6; Bilirubin, Total 0.7 mg/dL (0.2-1.0); Total Protein 6.1 g/dL (6.4-8.2)
[2017-03-23 08:26] VITALS: BP 123/62
[2017-03-23 08:30] VITALS: BP 123/62
[2017-03-23] MEDS: HCTZ 25 MG TAB PO SCH (10:42)
[2017-03-23] MEDS: CARVEDILOL 3.125 MG TAB PO SCH ×2 (10:42→22:23)
[2017-03-23] MEDS: DILTIAZEM HCL 120MG ER CAP PO SCH (10:43)
[2017-03-23] MEDS: ALLOPURINOL 300 MG TAB PO SCH (10:43)
[2017-03-23] MEDS: DOCUSATE SOD 100 MG CAP PO SCH (10:43)
[2017-03-23] MEDS: LISINOPRIL 10 MG TAB PO SCH (10:44)
[2017-03-23] MEDS: PANTOPRAZOLE 40 MG TAB PO SCH (10:44)
[2017-03-23] MEDS: ASPirin 81 mg TAB PO SCH (10:44)
[2017-03-23 12:00] VITALS: BP 154/86
[2017-03-23] MEDS ORDERED: IOHEXOL 350 MG/ML 100ML IJ ONE (13:34)
[2017-03-23] MEDS ORDERED: NITROGLYCERIN 0.4 MG SL TAB SL ONE (14:00)
[2017-03-23] MEDS ORDERED: METOPROLOL TARTRATE 1MG/1ML-5ML VIAL IV ONE (14:00)
[2017-03-23] MEDS ORDERED: SODIUM CHLORIDE 0.9% 1,000 ML IV SCH (15:45)
[2017-03-23 16:54] VITALS: BP 120/60
[2017-03-23 22:17] VITALS: BP 135/72
[2017-03-23] MEDS: ATORVASTATIN 20 MG TAB PO SCH (22:23)
[2017-03-24 05:18] VITALS: BP 139/66
[2017-03-24] MEDS: Boost Glucose Control 8 Ounces PO SCH ×4 (06:00→21:44)
[2017-03-24] MEDS: INSULIN NPH Isophane (HUMAN) 1unit/0.01ml Susp(100units/ml) SC SCH ×2 (06:14→17:46)
[2017-03-24] MEDS: SODIUM CHLOR 0.9% PF (SALINE LOCK) 10ML VIAL IV SCH ×3 (06:14→21:44)
[2017-03-24] MEDS: InsuLIN REG 1unit/0.01ml Soln (100units/ml) SC SCH ×4 (06:14→21:50)
[2017-03-24] MEDS: ACCU-CHEK COMFORT CURVE STRIP VI SCH ×4 (06:14→21:51)
[2017-03-24 07:40] VITALS: BP 143/82
[2017-03-24 08:00] VITALS: BP 143/82
[2017-03-24] MEDS: ASPirin 81 mg TAB PO SCH (09:54)
[2017-03-24] MEDS: DILTIAZEM HCL 120MG ER CAP PO SCH (09:54)
[2017-03-24] MEDS: CARVEDILOL 3.125 MG TAB PO SCH ×2 (09:54→21:44)
[2017-03-24] MEDS: SODIUM CHLORIDE 0.9% 1,000 ML IV SCH ×2 (09:54→23:06)
[2017-03-24] MEDS: DOCUSATE SOD 100 MG CAP PO SCH (09:54)
[2017-03-24] MEDS: LISINOPRIL 10 MG TAB PO SCH (09:55)
[2017-03-24] MEDS: HCTZ 25 MG TAB PO SCH (09:55)
[2017-03-24] MEDS: PANTOPRAZOLE 40 MG TAB PO SCH (09:55)
[2017-03-24] MEDS: ALLOPURINOL 300 MG TAB PO SCH (09:55)
[2017-03-24 11:55] VITALS: BP 128/55
[2017-03-24] MEDS ORDERED: ZOLPIDEM TARTRATE 5 MG TAB PO PRN (14:45)
[2017-03-24] MEDS ORDERED: LORazepam 0.5 MG TAB PO PRN (14:45)
[2017-03-24 16:50] VITALS: BP 141/79
[2017-03-24] MEDS: guaiFENesin-DEXTROMETHORPHAN 5ML SYR GT PRN ×2 (17:49→21:50)
[2017-03-24] MEDS: ATORVASTATIN 20 MG TAB PO SCH (21:43)
[2017-03-25] MEDS: guaiFENesin-DEXTROMETHORPHAN 5ML SYR GT PRN ×2 (03:29→07:45)
[2017-03-25 05:04] VITALS: BP 126/50
[2017-03-25] MEDS: Boost Glucose Control 8 Ounces PO SCH ×3 (06:00→17:10)
[2017-03-25] MEDS: INSULIN NPH Isophane (HUMAN) 1unit/0.01ml Susp(100units/ml) SC SCH ×2 (06:24→17:10)
[2017-03-25] MEDS: SODIUM CHLOR 0.9% PF (SALINE LOCK) 10ML VIAL IV SCH ×2 (06:24→14:00)
[2017-03-25] MEDS: InsuLIN REG 1unit/0.01ml Soln (100units/ml) SC SCH ×3 (06:24→17:00)
[2017-03-25] MEDS: ACCU-CHEK COMFORT CURVE STRIP VI SCH ×3 (06:25→17:10)
[2017-03-25 07:33] VITALS: BP 115/61
[2017-03-25 08:00] VITALS: BP 115/61
[2017-03-25] MEDS: ASPirin 81 mg TAB PO SCH (09:22)
[2017-03-25] MEDS: DOCUSATE SOD 100 MG CAP PO SCH (09:32)
[2017-03-25] MEDS: CARVEDILOL 3.125 MG TAB PO SCH (09:32)
[2017-03-25] MEDS: PANTOPRAZOLE 40 MG TAB PO SCH (09:32)
[2017-03-25] MEDS: DILTIAZEM HCL 120MG ER CAP PO SCH (09:32)
[2017-03-25] MEDS: LISINOPRIL 10 MG TAB PO SCH (09:33)
[2017-03-25] MEDS: ALLOPURINOL 300 MG TAB PO SCH (09:33)
[2017-03-25 11:57] VITALS: BP 127/62
[2017-03-25 12:01] VITALS: BP 127/62
[2017-03-25 13:12] LABS: BUN/Creatinine Ratio 17.6; Calcium 8.4 mg/dL (8.5-10.1); Potassium 4.4 mmol/L (3.5-5.1)
[2017-03-25 16:33] VITALS: BP 102/35
== END 2017-03-25 19:15 | disposition short-term general hospital (02) | DRG 287 ==
LOC: ER 15:01 → EDBD 15:01 → TELE 15:02 → TELE-WESTW 21:52
PROVIDERS: ADMIT Internal Medicine; ATTEND Internal Medicine
PROC: B2111ZZ Fluoroscopy of Multiple Coronary Arteries using Low Osmolar Contrast (ICD-10-PCS; 2017-03-18)
PROC: B246ZZ4 Ultrasonography of Right and Left Heart, Transesophageal (ICD-10-PCS; principal; 2017-03-19)
DX: I47.1 Supraventricular tachycardia (principal); E44.0 Moderate protein-calorie malnutrition; Q24.5 Malformation of coronary vessels; E11.9 Type 2 diabetes mellitus without complications; I10 Essential (primary) hypertension; I25.10 Atherosclerotic heart disease of native coronary artery without angina pectoris; D63.8 Anemia in other chronic diseases classified elsewhere; I12.9 Hypertensive chronic kidney disease with stage 1 through stage 4 chronic kidney disease, or unspecified chronic kidney disease; E83.51 Hypocalcemia; E78.5 Hyperlipidemia, unspecified; I07.1 Rheumatic tricuspid insufficiency; I34.0 Nonrheumatic mitral (valve) insufficiency; I35.0 Nonrheumatic aortic (valve) stenosis; I35.1 Nonrheumatic aortic (valve) insufficiency; K21.9 Gastro-esophageal reflux disease without esophagitis; E11.22 Type 2 diabetes mellitus with diabetic chronic kidney disease; E11.21 Type 2 diabetes mellitus with diabetic nephropathy; M10.9 Gout, unspecified; N18.3 Chronic kidney disease, stage 3 (moderate); Z79.4 Long term (current) use of insulin; Z82.49 Family history of ischemic heart disease and other diseases of the circulatory system; Z83.3 Family history of diabetes mellitus; I25.2 Old myocardial infarction; Z90.49 Acquired absence of other specified parts of digestive tract; Z95.2 Presence of prosthetic heart valve; Z68.31 Body mass index [BMI] 31.0-31.9, adult; Z71.89 Other specified counseling
CPT/HCPCS: 36415; 71010; 80048; 80053; 80061; 82962; 83036; 83735; 83880; 84484; 85014; 85018; 85025; 85610; 85730; 87081; 93005; 93306; 93312; 93454; 96361; 96374; 99152; J1815; J2250

== ENCOUNTER 2017-04-04 23:25 | Inpatient (IN) | payer OTHER, MEDICAID ==
[~2017-04-04] VITALS: Ht 157.5 cm; Wt 82.0 kg
[2017-04-04] MEDS ORDERED: SODIUM CHLORIDE 0.9% 1,000 ML IVB ONE (23:30)
[2017-04-04 23:48] LABS: Basophils # (auto) 0 uL; Basophils % (auto) 0.5 % (0.0-2.0); CONDITION Y; Eosinophils # (auto) 0.5 uL; Eosinophils % (auto) 5.1 % (0.0-7.0); Hematocrit 35.1 % (36.0-46.0); Hemoglobin 11.6 g/dL (12.2-16.2); Lymphocytes # (auto) 1.8 uL; Lymphocytes % (auto) 18.5 % (10.0-50.0); Mean Corpuscular Hemoglobin 32.7 pg (28.0-32.0); Mean Corpuscular Hgb Conc. 33.2 g/dL (32.0-36.0); Mean Corpuscular Volume 98.7 fL (80.0-100.0); Mean Platelet Volume 8.7 fL (7.4-10.4); Monocytes # (auto) 0.6 uL; Monocytes % (auto) 6.4 % (0.0-12.0); Neutrophils # (auto) 6.7 uL; Neutrophils % (auto) 69.5 % (37.0-80.0); Platelet Count (auto) 300 10^3/uL (140-450); Red Cell Distribution Width 17.9 % (11.6-16.0); White Blood Cell 9.7 10^3/uL (4.4-10.8)
[2017-04-05 00:06] LABS: INR 0.97 (0.9-1.15); Partial Thromboplastin Time 28.9 sec (22.64-33.71); Prothrombin Time 10.6 sec (9.37-12.3)
[2017-04-05 00:07] LABS: Albumin 3.1 g/dL (3.4-5.0); Anion Gap 12 (5-15); Aspartate Aminotransferase 7 U/L (15-37); Blood Urea Nitrogen 26 mg/dL (7-18); Carbon Dioxide 19 mmol/L (21-32); Chloride 112 mmol/L (98-107); GFR African American 59 mL/min; GFR Non-African American 48 mL/min; Glucose 163 mg/dL (74-106); Magnesium 2.1 mg/dL (1.6-2.6); Sodium 143 mmol/L (136-145)
[2017-04-05 00:11] LABS: Temperature: 22.4 C (20.0-25.0)
[2017-04-05 00:12] LABS: Alkaline Phosphatase 140 U/L (45-117); Bilirubin, Total 0.2 mg/dL (0.2-1.0); Total Protein 6.4 g/dL (6.4-8.2)
[2017-04-05] MEDS ORDERED: HYDROcodone-ACET 5/325MG TAB PO PRN (07:15)
[2017-04-05] MEDS ORDERED: DEXTROSE (50%) 50ML SYRG IV PRN (07:15)
[2017-04-05] MEDS ORDERED: MORPHINE SULF INJ 2 MG/ML SYRINGE 1ML IV PRN (07:15)
[2017-04-05] MEDS ORDERED: ACETAMINOPHEN 325 MG TAB PO PRN (07:15)
[2017-04-05] MEDS ORDERED: ONDANSETRON HCL 4 MG/2 ML VIAL IV PRN (07:15)
[2017-04-05] MEDS ORDERED: TEMAZEPAM 15 MG CAP PO PRN (07:15)
[2017-04-05] MEDS ORDERED: NITROGLYCERIN 0.4 MG SL TAB SL PRN (07:15)
[2017-04-05 09:00] VITALS: BP 120/42
[2017-04-05 09:10] VITALS: BP 120/42
[2017-04-05] MEDS: LISINOPRIL 20 MG TAB PO SCH (10:00)
[2017-04-05] MEDS: PANTOPRAZOLE 40 MG/10 ML VIAL IV SCH (10:45)
[2017-04-05] MEDS: DILTIAZEM HCL 120MG ER CAP PO SCH (10:45)
[2017-04-05] MEDS: ASPirin 81 mg TAB PO SCH (10:45)
[2017-04-05] MEDS: ENOXAPARIN SOD 40 MG/0.4 ML SYRINGE SC SCH (10:46)
[2017-04-05] MEDS: HCTZ 25 MG TAB PO SCH (10:46)
[2017-04-05] MEDS: ACCU-CHEK COMFORT CURVE STRIP VI SCH ×3 (11:49→23:15)
[2017-04-05] MEDS: InsuLIN REG 1unit/0.01ml Soln (100units/ml) SC SCH ×3 (11:49→23:15)
[2017-04-05 17:12] VITALS: BP 149/62
[2017-04-05] MEDS ORDERED: ATORVASTATIN 20 MG TAB PO SCH (22:00)
[2017-04-06 05:30] VITALS: BP 112/57
[2017-04-06] MEDS: InsuLIN REG 1unit/0.01ml Soln (100units/ml) SC SCH ×2 (06:00→13:06)
[2017-04-06] MEDS: ACCU-CHEK COMFORT CURVE STRIP VI SCH ×2 (06:11→12:00)
[2017-04-06 06:31] LABS: Basophils # (auto) 0 uL; Basophils % (auto) 0.5 % (0.0-2.0); CONDITION Y; Eosinophils # (auto) 0.5 uL; Eosinophils % (auto) 6.8 % (0.0-7.0); Hematocrit 30.8 % (36.0-46.0); Hemoglobin 10.1 g/dL (12.2-16.2); Lymphocytes # (auto) 1.9 uL; Lymphocytes % (auto) 27.1 % (10.0-50.0); Mean Corpuscular Hemoglobin 32.5 pg (28.0-32.0); Mean Corpuscular Hgb Conc. 32.7 g/dL (32.0-36.0); Mean Corpuscular Volume 99.3 fL (80.0-100.0); Mean Platelet Volume 8.8 fL (7.4-10.4); Monocytes # (auto) 0.5 uL; Monocytes % (auto) 7.5 % (0.0-12.0); Neutrophils # (auto) 4.2 uL; Neutrophils % (auto) 58.1 % (37.0-80.0); Platelet Count (auto) 254 10^3/uL (140-450); White Blood Cell 7.2 10^3/uL (4.4-10.8)
[2017-04-06 07:06] LABS: Potassium 4.5 mmol/L (3.5-5.1)
[2017-04-06 07:17] LABS: Albumin 2.8 g/dL (3.4-5.0); BUN/Creatinine Ratio 20.6; Calcium 8.6 mg/dL (8.5-10.1)
[2017-04-06 07:19] LABS: Bilirubin, Total 0.4 mg/dL (0.2-1.0); Total Protein 5.6 g/dL (6.4-8.2)
[2017-04-06 09:00] VITALS: BP 113/57
[2017-04-06] MEDS: LISINOPRIL 20 MG TAB PO SCH (10:00)
[2017-04-06] MEDS ORDERED: METOPROLOL SUCCINATE XL 50 MG TAB PO SCH (10:00)
[2017-04-06] MEDS: PANTOPRAZOLE 40 MG/10 ML VIAL IV SCH (10:38)
[2017-04-06] MEDS: ENOXAPARIN SOD 40 MG/0.4 ML SYRINGE SC SCH (10:38)
[2017-04-06] MEDS: ASPirin 81 mg TAB PO SCH (10:38)
[2017-04-06] MEDS: HCTZ 25 MG TAB PO SCH (10:39)
[2017-04-06] MEDS: DILTIAZEM HCL 120MG ER CAP PO SCH (10:40)
[2017-04-06 13:00] VITALS: BP 115/45
[2017-04-06 14:24] VITALS: BP 115/45
== END 2017-04-06 18:44 | disposition home or self-care (01) | DRG 307 ==
LOC: ER 23:25 → EDBD 23:25 → TELE 23:26 → TELE-EAST 04-05 08:34
PROVIDERS: ADMIT Nurse Practitioner; ATTEND Family Medicine
DX: I35.0 Nonrheumatic aortic (valve) stenosis (principal); D64.9 Anemia, unspecified; E11.9 Type 2 diabetes mellitus without complications; I47.1 Supraventricular tachycardia; I10 Essential (primary) hypertension; E78.5 Hyperlipidemia, unspecified; I25.10 Atherosclerotic heart disease of native coronary artery without angina pectoris; I71.4 Abdominal aortic aneurysm, without rupture; G47.00 Insomnia, unspecified; I25.2 Old myocardial infarction; Z82.49 Family history of ischemic heart disease and other diseases of the circulatory system; Z83.3 Family history of diabetes mellitus; Z79.82 Long term (current) use of aspirin; Z79.899 Other long term (current) drug therapy; Z90.49 Acquired absence of other specified parts of digestive tract
CPT/HCPCS: 36415; 71010; 78582; 80053; 82962; 83735; 83880; 84443; 84484; 85025; 85379; 85610; 85730; 87081; 93005; 94761; 96360; C9113; J1815

== ENCOUNTER → 2017-12-06 | Outpatient (CLI) | payer OTHER, MEDICAID ==
[2017-12-06 11:06] LABS: Basophils # (auto) 0 uL; Basophils % (auto) 0.4 % (0.0-2.0); Eosinophils # (auto) 0.2 uL; Hematocrit 40.7 % (36.0-46.0); Hemoglobin 13.2 g/dL (12.2-16.2); Lymphocytes # (auto) 1.4 uL; Lymphocytes % (auto) 19.9 % (10.0-50.0); Mean Corpuscular Hemoglobin 32.8 pg (28.0-32.0); Mean Corpuscular Hgb Conc. 32.5 g/dL (32.0-36.0); Monocytes # (auto) 0.4 uL; Monocytes % (auto) 6.3 % (0.0-12.0); Neutrophils # (auto) 4.8 uL; Neutrophils % (auto) 70.4 % (37.0-80.0); Nucleated Red Blood Cells % 0.1 %; Platelet Count (auto) 235 10^3/uL (140-450); Red Blood Cells 4.03 10^6/uL (4.0-5.20); Red Cell Distribution Width 17.4 % (11.8-14.3); White Blood Cell 6.9 10^3/uL (4.4-10.8)
[2017-12-06 11:13] LABS: Albumin 3.5 g/dL (3.4-5.0); BUN/Creatinine Ratio 25.7; Bilirubin, Total 0.5 mg/dL (0.2-1.0); Calcium 9.3 mg/dL (8.5-10.1); Potassium 4.5 mmol/L (3.5-5.1); Total Protein 7.5 g/dL (6.4-8.2)
== END | disposition home or self-care (01) ==
LOC: LAB 10:29
PROVIDERS: ATTEND Physician Assistant
DX: I12.9 Hypertensive chronic kidney disease with stage 1 through stage 4 chronic kidney disease, or unspecified chronic kidney disease (principal); E11.22 Type 2 diabetes mellitus with diabetic chronic kidney disease; N18.3 Chronic kidney disease, stage 3 (moderate); I35.9 Nonrheumatic aortic valve disorder, unspecified; E53.8 Deficiency of other specified B group vitamins; E78.5 Hyperlipidemia, unspecified; Z79.899 Other long term (current) drug therapy; Z79.82 Long term (current) use of aspirin; Z79.4 Long term (current) use of insulin
CPT/HCPCS: 36415; 80053; 80061; 82607; 85025

== ENCOUNTER → 2018-03-23 | Outpatient (CLI) | payer MEDICAID, OTHER | END | disposition home or self-care (01) | LOC: XYW 09:41 | PROVIDERS: ATTEND Internal Medicine Cardiovascular Disease | DX: I35.0 Nonrheumatic aortic (valve) stenosis (principal); I12.9 Hypertensive chronic kidney disease with stage 1 through stage 4 chronic kidney disease, or unspecified chronic kidney disease; E11.22 Type 2 diabetes mellitus with diabetic chronic kidney disease; N18.3 Chronic kidney disease, stage 3 (moderate); E78.5 Hyperlipidemia, unspecified | CPT/HCPCS: 93306 ==

== ENCOUNTER → 2018-12-28 | Outpatient (CLI) | payer OTHER | END | disposition home or self-care (01) | LOC: XYW 10:41 | PROVIDERS: ATTEND Internal Medicine | DX: I35.1 Nonrheumatic aortic (valve) insufficiency (principal); I10 Essential (primary) hypertension | CPT/HCPCS: 93306 ==

== ENCOUNTER → 2019-01-03 | Outpatient (CLI) | payer OTHER ==
[~2019-01-03] VITALS: Ht 157.5 cm; Wt 88.0 kg
[~2019-01-03] MED LIST changes: +ADENOSINE 74 MG in GIVE UN-DILUTED 0 ML IV STA
[2019-01-03 12:30] VITALS: BP 151/61
== END | disposition home or self-care (01) ==
LOC: XY 10:26
PROVIDERS: ATTEND Internal Medicine
DX: I49.5 Sick sinus syndrome (principal); I12.9 Hypertensive chronic kidney disease with stage 1 through stage 4 chronic kidney disease, or unspecified chronic kidney disease; E11.22 Type 2 diabetes mellitus with diabetic chronic kidney disease; N18.9 Chronic kidney disease, unspecified
CPT/HCPCS: 78452; 93017; A9500; J0153

== ENCOUNTER 2019-01-22 06:45 | Inpatient (IN) | payer OTHER ==
[~2019-01-22] VITALS: Ht 157.5 cm; Wt 80.7 kg
[~2019-01-22 06:45] MED LIST changes: -ADENOSINE 74 MG in GIVE UN-DILUTED 0 ML IV STA; -DIL120C PO; +DILT120C12 PO
[2019-01-22] MEDS ORDERED: SODIUM CHLORIDE 0.9% 1,000 ML IV ONE (07:21)
[2019-01-22 08:22] LABS: Basophils # (auto) 0.1 uL; Eosinophils # (auto) 0.2 uL; Eosinophils % (auto) 3.9 % (0.0-7.0); Hematocrit 37.8 % (36.0-46.0); Hemoglobin 12.3 g/dL (12.2-16.2); Lymphocytes # (auto) 1.3 uL; Lymphocytes % (auto) 20.5 % (10.0-50.0); Mean Corpuscular Hemoglobin 32.5 pg (28.0-32.0); Mean Corpuscular Hgb Conc. 32.7 g/dL (32.0-36.0); Mean Corpuscular Volume 99.6 fL (80.0-100.0); Monocytes # (auto) 0.5 uL; Monocytes % (auto) 7.9 % (0.0-12.0); Neutrophils # (auto) 4.1 uL; Neutrophils % (auto) 66.7 % (37.0-80.0); Platelet Count (auto) 182 10^3/uL (140-450); Red Cell Distribution Width 17.4 % (11.8-14.3); White Blood Cell 6.1 10^3/uL (4.4-10.8)
[2019-01-22 08:39] LABS: INR 0.91 (0.9-1.15); Partial Thromboplastin Time 25.5 sec (23.64-32.05)
[2019-01-22 08:47] LABS: Alanine Aminotransferase 15 U/L (13-56); Albumin 3.2 g/dL (3.4-5.0); Anion Gap 9 (5-15); Aspartate Aminotransferase 8 U/L (15-37); Blood Urea Nitrogen 35 mg/dL (7-18); Calcium 8.8 mg/dL (8.5-10.1); Carbon Dioxide 21 mmol/L (21-32); Chloride 114 mmol/L (98-107); GFR African American 46 mL/min; GFR Non-African American 38 mL/min; Glucose 104 mg/dL (74-106); Magnesium 2.3 mg/dL (1.6-2.6); Potassium 4.3 mmol/L (3.5-5.1); Sodium 144 mmol/L (136-145)
[2019-01-22 08:52] LABS: Alkaline Phosphatase 114 U/L (45-117); Bilirubin, Total 0.5 mg/dL (0.2-1.0); Total Protein 6.5 g/dL (6.4-8.2)
[2019-01-22 09:27] LABS: Urine WBC None Seen /hpf (0 - 5)
[2019-01-22 09:56] LABS: Urine Bacteria FEW /hpf (None Seen); Urine Blood Negative /uL (Negative); Urine Specific Gravity 1.008 (1.001-1.035)
[2019-01-22] MEDS ORDERED: ENOXAPARIN SOD 60 MG/0.6 ML SYRINGE SC ONE (15:00)
[2019-01-22] MEDS ORDERED: DEXTROSE (50%) 50ML SYRG IV PRN (16:00)
[2019-01-22] MEDS ORDERED: MORPHINE SULF INJ 2 MG/ML SYRINGE 1ML IV PRN (16:00)
[2019-01-22] MEDS ORDERED: NITROGLYCERIN 0.4 MG SL TAB SL PRN (16:00)
[2019-01-22] MEDS ORDERED: TEMAZEPAM 15 MG CAP PO PRN (16:15)
[2019-01-22] MEDS: InsuLIN REG 1unit/0.01ml Soln (100units/ml) SC SCH ×2 (17:00→22:00)
[2019-01-22] MEDS: ACCU-CHEK COMFORT CURVE STRIP VI SCH ×2 (17:50→22:13)
[2019-01-22 21:00] VITALS: BP 155/91
--- NOTE | 2019-01-22 21:00 | NUR ---
Telemetry admit from [facility] admitted to Telemetry unit after SBAR received. Patient oriented to Mary Anna RN primary RN, unit, room, bed, and unit policies regarding patient care and visiting hours. Patient now on continuous telemetry monitoring, tele box # 29 and telemetry reading on arrival to unit is SR. Patient weighed by bedscale and encouraged to call if they need something. All questions and concerns addressed, patient verbalized understanding, call light within reach, will continue to monitor Note: []
[2019-01-22 22:00] VITALS: BP 155/91
--- NOTE | 2019-01-22 22:00 | NUR ---
Patient was looking for her belongings in the ER. Per patient she had her clothes and her shoes in 2 brown bags on a chair in one of the corners. Carmen Boyer and Ermelinda went down to ER personally to look for it but its not there. Spoke to ER Staff Danny who brought the patient up if her belongings was on the gurney. Per Danny, he looked everywhere and found nothing. Patient made aware of the situation and insisted to continue looking for her belongings
[2019-01-22] MEDS: PANTOPRAZOLE 40 MG TAB PO SCH (22:07)
[2019-01-22] MEDS: ATORVASTATIN 20 MG TAB PO SCH (22:07)
[2019-01-23] VITALS (8 sets, daily range): BP systolic 129–155; BP diastolic 54–91
[2019-01-23] MEDS ORDERED: HYDR25TA4 PO (00:22)
[2019-01-23 05:01] LABS: Basophils # (auto) 0.1 uL; Basophils % (auto) 0.7 % (0.0-2.0); Eosinophils # (auto) 0.3 uL; Eosinophils % (auto) 4.7 % (0.0-7.0); Hematocrit 38.3 % (36.0-46.0); Hemoglobin 12.9 g/dL (12.2-16.2); Lymphocytes # (auto) 1.9 uL; Lymphocytes % (auto) 26.7 % (10.0-50.0); Mean Corpuscular Hemoglobin 33.8 pg (28.0-32.0); Mean Corpuscular Hgb Conc. 33.6 g/dL (32.0-36.0); Mean Corpuscular Volume 100.4 fL (80.0-100.0); Monocytes # (auto) 0.6 uL; Monocytes % (auto) 8.7 % (0.0-12.0); Neutrophils # (auto) 4.2 uL; Neutrophils % (auto) 59.2 % (37.0-80.0); Platelet Count (auto) 174 10^3/uL (140-450); Red Blood Cells 3.82 10^6/uL (4.0-5.20); Red Cell Distribution Width 16.9 % (11.8-14.3); White Blood Cell 7.2 10^3/uL (4.4-10.8)
[2019-01-23 05:20] LABS: Calcium 8.7 mg/dL (8.5-10.1); Potassium 4.4 mmol/L (3.5-5.1)
[2019-01-23 05:26] LABS: BUN/Creatinine Ratio 29.9
[2019-01-23] MEDS: InsuLIN REG 1unit/0.01ml Soln (100units/ml) SC SCH ×4 (06:16→21:59)
[2019-01-23] MEDS: ACCU-CHEK COMFORT CURVE STRIP VI SCH ×4 (06:16→21:55)
[2019-01-23] MEDS ORDERED: ASPirin 81 mg TAB PO SCH (10:00)
[2019-01-23] MEDS ORDERED: DILTIAZEM HCL 120MG ER CAP PO SCH (10:00)
[2019-01-23] MEDS: PANTOPRAZOLE 40 MG TAB PO SCH ×2 (10:19→21:55)
[2019-01-23] MEDS: ALLOPURINOL 300 MG TAB PO SCH (10:21)
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
--- NOTE | 2019-01-23 11:00 | NUR ---
Patient made password: [email or web address]
[2019-01-23] MEDS ORDERED: MEMA1TAB2 PO (15:19)
[2019-01-23] MEDS ORDERED: CELE100C82 PO (15:21)
[2019-01-23] MEDS ORDERED: METO25TA62 PO (15:26)
--- NOTE | 2019-01-23 19:40 | NUR ---
Opening Shift Note Assumed care of patient, awake and alert. No S/S of distress/SOB or pain. Instructed on POC and to call for assist PRN, patient verbalized understanding, call light within reach, will continue to monitor for changes Q1hr and PRN.
[2019-01-23] MEDS: ATORVASTATIN 20 MG TAB PO SCH (21:55)
[2019-01-24] VITALS (7 sets, daily range): BP systolic 132–159; BP diastolic 60–80
[2019-01-24] MEDS: InsuLIN REG 1unit/0.01ml Soln (100units/ml) SC SCH ×4 (06:09→21:54)
[2019-01-24] MEDS: ACCU-CHEK COMFORT CURVE STRIP VI SCH ×4 (06:09→21:50)
[2019-01-24 06:35] LABS: Calcium 8.6 mg/dL (8.5-10.1); Potassium 4.5 mmol/L (3.5-5.1)
[2019-01-24 06:39] LABS: BUN/Creatinine Ratio 24.6
--- NOTE | 2019-01-24 07:30 | NUR ---
Opening Shift Note Assumed care of patient, ASLEEP. RESPIRATION EVEN AND UNLABORED. No S/S of distress/SOB or pain.
--- NOTE | 2019-01-24 10:15 | NUR ---
DR VICTORIA AT BEDSIDE. PT INFORMED THAT DR VICTORIA WILL CALL DR CASTRO TO SEE PATIENT. PT VERBALIZED UNDERSTANDING.
[2019-01-24] MEDS: DILTIAZEM HCL 120MG ER CAP PO SCH (10:26)
[2019-01-24] MEDS: ALLOPURINOL 300 MG TAB PO SCH (10:26)
[2019-01-24] MEDS: ASPirin 81 mg TAB PO SCH (10:26)
[2019-01-24] MEDS: PANTOPRAZOLE 40 MG TAB PO SCH ×2 (10:26→21:50)
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
--- NOTE | 2019-01-24 11:00 | NUR ---
SPOKE TO PT'S FRIEND RYDER. PER RYDER, THE PATIENT ONLY HAVE THE NEPHEW THE EQUIPMENT DRIVER, ASIDE FROM HER.
--- NOTE | 2019-01-24 11:20 | NUR ---
CALLED PT'S NEPHEW, MAKAYLA, PER PT'S REQUEST. MESSAGE LEFT ON THE ANSWERING SERVICE. WAITING FOR CALL BACK,
--- NOTE | 2019-01-24 15:00 | NUR ---
SPOKE TO SOMEONE FROM DR CASTRO'S OFFICE AND I WAS INFORMED THAT PT WAS SEEN YESTERDAY AND CARDIO HAD SIGNED OFF. PT CAN BE DC'D HOME AND FOLLOW UP WITH DR CASTRO IN A WEEK.
--- NOTE | 2019-01-24 16:20 | NUR ---
SPOKE TO DR VICTORIA RE: DR CASTRO'S MESSAGE. PER DR VICTORIA, HE WILL DISCHARGE HER TOMORROW.
--- NOTE | 2019-01-24 16:25 | NUR ---
SPOKE TO PT'S NEPHEW, MAKAYLA. HE WAS MADE AWARE THAT PT WILL GO HOME TOMORROW. PER NEPHEW, HE WILL BE THE ONE TO PICK HER UP TOMORROW.
--- NOTE | 2019-01-24 16:45 | NUR ---
JARRELL CLAROS WITH DR CASTRO WAS AT BEDSIDE. PT IS NOW SCHEDULED FOR LEFT AND RIGHT HEART CATH TOMORROW.
--- NOTE | 2019-01-24 17:15 | NUR ---
CALLED DAHIANA BENAVIDES'S NEPHEW. MAKAYLA MADE AWARE THAT THE PATIENT WILL BE UNDERGOING A LEFT AND RIGHT HEART CATHETERIZATION TOMORROW.
--- NOTE | 2019-01-24 19:02 | NUR ---
CLOSING PT SITTING IN CHAIR. DENIES PAIN OR SOB. VERBALIZED COMFORT. PT AWARE OF THE HEART CATHETERIZATION PROCEDURE SCHEDULED TOMORROW. CONSENTS SIGNED AND FILED IN THE CHART.
--- NOTE | 2019-01-24 19:15 | NUR ---
Opening Shift Note Received report from Sharon FLETCHER. Assumed care of patient, awake and alert, sitting on the chair. No S/S of distress/SOB or pain. Instructed on POC and to call for assist PRN, will continue to monitor for changes Q1hr and PRN.
[2019-01-24] MEDS: ATORVASTATIN 20 MG TAB PO SCH (21:50)
--- NOTE | 2019-01-24 23:55 | NUR ---
Advised nothing by mouth after midnight for procedure tomorrow, patient verbalized understanding.
--- NOTE | 2019-01-25 00:05 | NUR ---
IV removal IV on the L antecubital leaking. IV DC'd with clean sterile technique, catheter fully intact. Pressure dressing applied to site. Patient tolerated well.
[2019-01-25] MEDS: SODIUM CHLORIDE 0.9% 1,000 ML IV SCH ×3 (00:14→23:17)
--- NOTE | 2019-01-25 00:15 | NUR ---
IV insertion IV access obtained, via clean sterile technique by inserting 22 gauge catheter at R forearm after 2 attempt(s). IV secured properly. No trauma to site. Patient tolerated well.
[2019-01-25 05:26] VITALS: BP 96/41
[2019-01-25 06:23] LABS: Basophils # (auto) 0 uL; Basophils % (auto) 0.5 % (0.0-2.0); Eosinophils # (auto) 0.3 uL; Hematocrit 34.7 % (36.0-46.0); Hemoglobin 11.5 g/dL (12.2-16.2); Lymphocytes # (auto) 1.6 uL; Lymphocytes % (auto) 24.8 % (10.0-50.0); Mean Corpuscular Hemoglobin 32.8 pg (28.0-32.0); Mean Corpuscular Hgb Conc. 33.1 g/dL (32.0-36.0); Mean Corpuscular Volume 99.4 fL (80.0-100.0); Monocytes # (auto) 0.6 uL; Monocytes % (auto) 8.6 % (0.0-12.0); Neutrophils % (auto) 61.1 % (37.0-80.0); Nucleated Red Blood Cells % 0.1 %; Platelet Count (auto) 164 10^3/uL (140-450); Red Blood Cells 3.49 10^6/uL (4.0-5.20); Red Cell Distribution Width 17.4 % (11.8-14.3); White Blood Cell 6.6 10^3/uL (4.4-10.8)
[2019-01-25 06:45] LABS: Potassium 4.5 mmol/L (3.5-5.1)
[2019-01-25] MEDS: InsuLIN REG 1unit/0.01ml Soln (100units/ml) SC SCH ×4 (06:50→22:00)
[2019-01-25] MEDS: ACCU-CHEK COMFORT CURVE STRIP VI SCH ×4 (06:50→23:15)
[2019-01-25 06:51] LABS: Calcium 8.5 mg/dL (8.5-10.1)
[2019-01-25 06:54] LABS: INR 0.93 (0.9-1.15); Partial Thromboplastin Time 25.4 sec (23.64-32.05)
--- NOTE | 2019-01-25 07:24 | NUR ---
Patient stable at this time, no sob or pain. Endorsed care to Nadeen FLETCHER.
--- NOTE | 2019-01-25 07:25 | NUR ---
Opening Shift Note Received report from Jessica FLETCHER. Assumed care of patient, asleep. No S/S of distress/SOB or pain. For [facility] today, maintained on NPO. Placed call light within reach, kept 2 side rails up, will continue to monitor for changes Q1hr and PRN.
[2019-01-25 08:00] VITALS: BP 104/53
[2019-01-25 09:00] VITALS: BP 104/53
[2019-01-25] MEDS: ASPirin 81 mg TAB PO SCH (09:44)
[2019-01-25] MEDS: DILTIAZEM HCL 120MG ER CAP PO SCH (09:44)
[2019-01-25] MEDS: PANTOPRAZOLE 40 MG TAB PO SCH ×2 (09:44→23:10)
[2019-01-25] MEDS: ALLOPURINOL 300 MG TAB PO SCH (09:45)
--- NOTE | 2019-01-25 10:00 | NUR ---
Dr. Wood at bedside.
[2019-01-25 12:32] VITALS: BP 142/75
--- NOTE | 2019-01-25 15:40 | NUR ---
RECEIVED A CALL FROM PLANT FACILITIES TECHNICIAN, SPOKE WITH RIAN THAT PATIENT'S LHC WILL BE MOVED TO WEDNESDAY- 01/27/2019. PATIENT MADE AWARE AND VERBALIZED UNDERSTANDING.
[2019-01-25 16:47] VITALS: BP 156/81
[2019-01-25 22:23] VITALS: BP 150/93
[2019-01-25] MEDS: ATORVASTATIN 20 MG TAB PO SCH (23:10)
[2019-01-26 05:20] VITALS: BP 118/60
[2019-01-26 06:33] LABS: Calcium 8.4 mg/dL (8.5-10.1); Potassium 4.4 mmol/L (3.5-5.1)
[2019-01-26 06:34] LABS: BUN/Creatinine Ratio 21.8
[2019-01-26] MEDS: ACCU-CHEK COMFORT CURVE STRIP VI SCH ×4 (06:45→22:21)
[2019-01-26] MEDS: InsuLIN REG 1unit/0.01ml Soln (100units/ml) SC SCH ×4 (06:45→22:00)
--- NOTE | 2019-01-26 07:00 | NUR ---
OPENING SHIFT NOTE Assumed care of the patient from the central office inspector RN. The patient is A&Ox4, no signs or symptoms of distress. Educated the patient on POC and patient verbalized understanding. The patient's call light is within reach and bed is in the lowest, locked position. Will round hourly and continue monitor.
--- NOTE | 2019-01-26 07:20 | NUR ---
Report given to day RN. POC BG done by JUSTINE Del Rio - Nocs.
[2019-01-26 08:00] VITALS: BP 131/41
--- NOTE | 2019-01-26 09:46 | NUR ---
REMOVED ISOLATION PRECAUTIONS Patient tested negative for MRSA nares. 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 Notified battery rechargerRoss. Precautions were placed per protocol. Patient's isolation was removed per protocol. Will continue to monitor.
[2019-01-26] MEDS: ASPirin 81 mg TAB PO SCH (09:49)
[2019-01-26] MEDS: PANTOPRAZOLE 40 MG TAB PO SCH ×2 (09:50→22:16)
[2019-01-26] MEDS: DILTIAZEM HCL 120MG ER CAP PO SCH (09:50)
--- NOTE | 2019-01-26 09:50 | NUR ---
Dr. Wood at bedside
[2019-01-26] MEDS: ALLOPURINOL 300 MG TAB PO SCH (09:51)
--- NOTE | 2019-01-26 11:00 | NUR ---
PHYSICAL THERAPY SPOKE WITH PTCYNTHIA. THE PATIENT REFUSED PT, SAYING THAT SHE IS ABLE TO AMBULATE ON HER OWN, WITH A WALKER. SHE STATES SHE DOES NOT NEED PHYSICAL THERAPY. WILL EDUCATE THE PATIENT ON THE NEED FOR AMBULATION WITH PT. WILL CONTINUE TO MONITOR.
[2019-01-26 12:00] VITALS: BP 184/95
--- NOTE | 2019-01-26 12:37 | NUR ---
Nutrition Assessment Notes please see attached link for complete assessment Est. Needs abw [id number] kcal (23-25 kcal/kgBW),64-70 gms pro (1.0-1.1 gms/kgBW). Will continue to monitor pertinent labs and reassess nutrient need prn Addendum: 01/26/19 at [address] Amended: Links added.
[2019-01-26 16:00] VITALS: BP 131/69
[2019-01-26 22:00] VITALS: BP 137/67
[2019-01-26] MEDS: ATORVASTATIN 20 MG TAB PO SCH (22:17)
[2019-01-27 05:10] VITALS: BP 132/54
[2019-01-27] MEDS: ACCU-CHEK COMFORT CURVE STRIP VI SCH ×4 (06:25→21:40)
[2019-01-27] MEDS: InsuLIN REG 1unit/0.01ml Soln (100units/ml) SC SCH ×4 (06:25→22:00)
--- NOTE | 2019-01-27 07:00 | NUR ---
Opening Shift Note Patient down to Information Systems Administrator
--- NOTE | 2019-01-27 07:30 | NUR ---
PATIENT'S BELONGINGS PATIENT'S BELONGINGS PLACED IN BEDSIDE DRAWER. PATIENT OK WITH PLACEMENT OF BELONGINGS IN DRAWER. INFORMED PATIENT THAT NO PERSONAL BELONGINGS CAN BE TAKEN DOWN TO PROCEDURE, PATIENT VERBALIZED UNDERSTANDING. JUSTINE JERRY.
--- NOTE | 2019-01-27 07:35 | NUR ---
PATIENT TAKEN DOWN TO DIABETES MANAGER VIA HOSPITAL BED PATIENT AWAKE AND ALERT X4. NO S/S OF DISTRESS NOTED AT TIME OF TRANSPORT. HAND-OFF TO DIABETES MANAGER JUSTINE GALLAGHER. SEBASTIAN DAY SHIFT RN AWARE.
[2019-01-27] MEDS ORDERED: LIDOCAINE 2%HCL (LOCAL ANESTH.) INJ 20ML MDV ONE (07:38)
[2019-01-27] MEDS ORDERED: IOHEXOL 350 MG/ML 100ML IJ ONE ×2 (07:38→08:32)
--- NOTE | 2019-01-27 07:45 | NUR ---
NOTIFIED ENDING MACHINE OPERATOR THAT PATIENT IS DOWN IN ACCOUNTING MACHINE SERVICER
[2019-01-27] MEDS ORDERED: ANGIOMAX 250 MG VIAL IV ONE (09:12)
[2019-01-27] MEDS ORDERED: SODIUM CHL 0.9% 0 ML ONE (09:13)
[2019-01-27] MEDS ORDERED: fentaNYL CITRATE 100 MCG/2 ML VL ONE (09:13)
[2019-01-27] MEDS ORDERED: MIDAZOLAM HCL 1MG/1ML-2 ML VIAL ONE ×2 (09:13→10:24)
[2019-01-27] MEDS ORDERED: IODIXANOL 320MG/ML 100ML BTL IV ONE ×2 (09:23→10:20)
[2019-01-27] MEDS: ASPirin 81 mg TAB PO SCH (10:00)
[2019-01-27] MEDS: DILTIAZEM HCL 120MG ER CAP PO SCH (10:00)
[2019-01-27] MEDS: PANTOPRAZOLE 40 MG TAB PO SCH ×2 (10:00→21:40)
[2019-01-27] MEDS: ALLOPURINOL 300 MG TAB PO SCH (10:00)
[2019-01-27 12:00] VITALS: BP 145/68
[2019-01-27 16:00] VITALS: BP 138/79
--- NOTE | 2019-01-27 19:24 | NUR ---
Opening Shift Note Assumed care of patient, awake and alert x 2. Patient is confused but is easily readjusted to reality. No S/S of distress/SOB or pain. Bed is in lowest position and locked. Call light within reach. Board updated. Tele box number matches monitor and leads are in correct placement. Instructed on POC and to call for assist PRN, will continue to monitor for changes Q1hr and PRN.
[2019-01-27] MEDS: ATORVASTATIN 20 MG TAB PO SCH (21:40)
[2019-01-27 22:00] VITALS: BP 124/96
[2019-01-28 05:00] VITALS: BP 143/94
[2019-01-28] MEDS: InsuLIN REG 1unit/0.01ml Soln (100units/ml) SC SCH ×2 (06:31→11:30)
[2019-01-28] MEDS: ACCU-CHEK COMFORT CURVE STRIP VI SCH ×2 (06:31→11:38)
--- NOTE | 2019-01-28 07:40 | NUR ---
Opening Shift Note Assumed care of patient, awake and alert and oriented x4. No S/S of distress/SOB or pain. Instructed on POC and to call for assist PRN, will continue to monitor for changes. Dressing to right groin intact noted to have small amount of dried up blood per report was there since 01/27/19, area marked and will continue to monitor for any changes. Some discoloration noted to right groin site yet no c/o pain, no swelling noted, and are soft, nontender to touch.
[2019-01-28 08:00] VITALS: BP 130/71
--- NOTE | 2019-01-28 09:20 | NUR ---
Patient ready to go home stated that came in and told her she will be discharged today. Patient anxious and wants to call Taxi informed her have to wait for order and paperwork. Informed her will reach out and call nephew. Asked if director of social media marketing saw her and she stated yes, and stated that she was informed by hospital director of social media marketing to call [facility]. Patient stated that she is ready to go home and able to continue to live by herself . Patient stated that she does everything at home herself with no problem and that she doesn't like to cook. Patient stated that her Nephew, is involved. Patient also stated she is just ready to go now.
--- NOTE | 2019-01-28 09:40 | NUR ---
Dr Diggs made aware that per report night RN had informed AM RN that Dr Carson had planned to fix one of the lead wires from pacemaker that was displaced. Dr Diggs stated that no progress notes were written anywhere from Dr Carson and that patient could follow up with Dr Carson as outpatient. Dr Diggs also requested for ECHO order to be dc'd. Patient also anxious and wanting to go home and be d/c today, doesn't want to wait the weekend.
--- NOTE | 2019-01-28 09:45 | NUR ---
Patient made aware to follow up with Dr Carson regarding pacemaker per Dr Diggs patient may d/c home.Made aware to monitor right groin site for bleeding, swelling and pain. All questions and concerns addressed. Patient instructed to call 911 if right groin site begins to bleed and place pressure immediately. Patient verbalized understanding.
[2019-01-28] MEDS: PANTOPRAZOLE 40 MG TAB PO SCH (10:30)
[2019-01-28] MEDS: ASPirin 81 mg TAB PO SCH (10:30)
[2019-01-28] MEDS: ALLOPURINOL 300 MG TAB PO SCH (10:30)
[2019-01-28] MEDS: DILTIAZEM HCL 120MG ER CAP PO SCH (10:31)
--- NOTE | 2019-01-28 10:34 | NUR ---
Spoke with Nasir. Jamel and aware patient d/c home and Nephew to arrange ride for patient.
--- NOTE | 2019-01-28 11:00 | NUR ---
Patient anxious to leave states that would rather call taxi to leave, made aware that Karthikeyan Bestsavage has already set up transportation and will be here at 1PM. Patient will continue to wait for ride.
[2019-01-28 12:00] VITALS: BP 124/91
--- NOTE | 2019-01-28 14:19 | NUR ---
Discharge instructions given as ordered. Encourage to follow up with PMD and Dr Carson as instructed. Made aware once again to follow up with Dr Carson regarding pacemaker.Made aware to monitor right groin site for bleeding, swelling and pain. All questions and concerns addressed. Patient instructed to call 911 if right groin site begins to bleed and place pressure immediately. Patient verbalized understanding. Medication reconciliation form completed and copy given to patient. Telemetry unit returned to [facility]. Patient taken to vehicle via wheelchair with all personal belongings, accompanied by staff and friend Hue. No distress noted at time of departure.
--- NOTE | 2019-01-28 14:29 | NUR ---
Had left message for Nephew Jamel to inform patient has been picked up by friend Hue as he had set up. Received call back from Nephew's , Jo. Password received and made aware that patient has left hospital, made aware pt was informed to follow up with Dr Carson and to call Wednesday to make appointment regarding pacemaker per Dr Diggs, to follow up with [facility] as recommended by director of social work. Jo stated that they have started on working on that already. Made aware that prescription given to friend, Hue and that they had stated will get it filled today. Jo stated understanding.
[2019-02-08] MEDS ORDERED: DILT120C12 PO (16:40)
== END 2019-01-28 14:19 | disposition home or self-care (01) | DRG 287 ==
LOC: ER 06:45 → EDBD 06:45 → TELE 15:59 → TELE-CENTR 20:16
PROVIDERS: ADMIT Nurse Practitioner Acute Care; ATTEND Internal Medicine
PROC: 4A023N8 Measurement of Cardiac Sampling and Pressure, Bilateral, Percutaneous Approach (ICD-10-PCS; principal; 2019-01-27)
PROC: B2111ZZ Fluoroscopy of Multiple Coronary Arteries using Low Osmolar Contrast (ICD-10-PCS; 2019-01-27)
PROC: B2151ZZ Fluoroscopy of Left Heart using Low Osmolar Contrast (ICD-10-PCS; 2019-01-27)
DX: R07.9 Chest pain, unspecified (principal); I47.1 Supraventricular tachycardia; E44.1 Mild protein-calorie malnutrition; N17.9 Acute kidney failure, unspecified; E11.21 Type 2 diabetes mellitus with diabetic nephropathy; N18.3 Chronic kidney disease, stage 3 (moderate); E11.22 Type 2 diabetes mellitus with diabetic chronic kidney disease; I12.9 Hypertensive chronic kidney disease with stage 1 through stage 4 chronic kidney disease, or unspecified chronic kidney disease; D63.8 Anemia in other chronic diseases classified elsewhere; E66.9 Obesity, unspecified; I49.5 Sick sinus syndrome; M10.9 Gout, unspecified; M19.90 Unspecified osteoarthritis, unspecified site; M54.5 Low back pain; E78.5 Hyperlipidemia, unspecified; G89.29 Other chronic pain; I08.0 Rheumatic disorders of both mitral and aortic valves; I25.10 Atherosclerotic heart disease of native coronary artery without angina pectoris; Z79.4 Long term (current) use of insulin; Z79.82 Long term (current) use of aspirin; Z79.899 Other long term (current) drug therapy; Z82.49 Family history of ischemic heart disease and other diseases of the circulatory system; Z82.5 Family history of asthma and other chronic lower respiratory diseases; Z83.3 Family history of diabetes mellitus; Z91.14 Patient's other noncompliance with medication regimen; Z95.0 Presence of cardiac pacemaker; Z90.49 Acquired absence of other specified parts of digestive tract; I25.2 Old myocardial infarction; Z68.32 Body mass index [BMI] 32.0-32.9, adult
CPT/HCPCS: 36415; 71046; 80048; 80053; 80061; 81001; 82962; 83036; 83735; 83880; 84443; 84484; 85025; 85379; 85610; 85730; 86850; 86900; 86901; 87081; 93005; 93460; 93970; 94761; 96372; 97163; 99152; C1751; G0378; J1815; J2250; Q9967

== ENCOUNTER 2019-02-07 20:44 | Inpatient (IN) | payer OTHER | END 2019-02-11 19:01 | disposition short-term general hospital, planned readmission (82) | LOC: TELE 02-08 00:59 → TELE-CENTR 02-08 04:03 → ER 20:44 | DX: R07.2 Precordial pain (principal); E44.1 Mild protein-calorie malnutrition; I13.0 Hypertensive heart and chronic kidney disease with heart failure and stage 1 through stage 4 chronic kidney disease, or unspecified chronic kidney disease ==

== ENCOUNTER 2019-02-21 19:59 | Inpatient (IN) | payer OTHER | END 2019-02-24 20:55 | disposition home or self-care (01) | LOC: TELE-CENTR 19:59 | DX: R55 Syncope and collapse (principal); E44.0 Moderate protein-calorie malnutrition ==

== ENCOUNTER 2019-03-15 11:32 | Inpatient (IN) | payer OTHER ==
[~2019-03-15] VITALS: Ht 157.5 cm; Wt 75.3 kg
[~2019-03-15 11:32] MED LIST changes: -ATO40T PO; +CELE100C82 PO; -HYDR25TA4 PO; +MEMA1TAB2 PO; -TEMA30CA PO
[2019-03-15 12:16] LABS: Basophils # (auto) 0.1 uL; Basophils % (auto) 0.9 % (0.0-2.0); Eosinophils # (auto) 0.2 uL; Eosinophils % (auto) 2.5 % (0.0-7.0); Hematocrit 34.7 % (36.0-46.0); Hemoglobin 11.6 g/dL (12.2-16.2); Lymphocytes # (auto) 1.3 uL; Lymphocytes % (auto) 17.7 % (10.0-50.0); Mean Corpuscular Hemoglobin 33.4 pg (28.0-32.0); Mean Corpuscular Hgb Conc. 33.4 g/dL (32.0-36.0); Monocytes # (auto) 0.5 uL; Monocytes % (auto) 6.3 % (0.0-12.0); Neutrophils # (auto) 5.5 uL; Neutrophils % (auto) 72.6 % (37.0-80.0); Platelet Count (auto) 132 10^3/uL (140-450); Red Blood Cells 3.48 10^6/uL (4.0-5.20); Red Cell Distribution Width 17.5 % (11.8-14.3); White Blood Cell 7.6 10^3/uL (4.4-10.8)
[2019-03-15] MEDS ORDERED: DILTIAZEM HCL 25 MG/5 ML VIAL IV ONE (12:45)
[2019-03-15 12:47] LABS: INR 0.95 (0.9-1.15); Partial Thromboplastin Time 26.3 sec (23.64-32.05)
[2019-03-15 13:02] LABS: Albumin 3.3 g/dL (3.4-5.0); Calcium 8.4 mg/dL (8.5-10.1); Potassium 4.3 mmol/L (3.5-5.1)
[2019-03-15 13:08] LABS: BUN/Creatinine Ratio 23.3; Bilirubin, Total 0.7 mg/dL (0.2-1.0)
[2019-03-15] MEDS: DILTIAZEM 125mg/125ml BAG KIT 100 ML IV SCH (13:25)
[2019-03-15] MEDS ORDERED: MORPHINE SULF INJ 2 MG/ML SYRINGE 1ML IV PRN (14:00)
[2019-03-15] MEDS ORDERED: DEXTROSE (50%) 50ML SYRG IV PRN (14:00)
[2019-03-15] MEDS ORDERED: CELECOXIB 100 MG CAP PO PRN (14:00)
[2019-03-15] MEDS ORDERED: NITROGLYCERIN 0.4 MG SL TAB SL PRN (14:00)
--- NOTE | 2019-03-15 15:34 | NUR ---
RECEIVED REPORT FROM SYLVIA GÓMEZ.
[2019-03-15 16:23] VITALS: BP 119/78
--- NOTE | 2019-03-15 16:30 | NUR ---
Telemetry admit from [facility] admitted to Telemetry unit after SBAR received. Patient oriented to ANUM MCKINLEY RN, unit, room, bed, and unit policies regarding patient care and visiting hours. Patient now on continuous telemetry monitoring, tele box # 16 and telemetry reading on arrival to unit is SINUS RHYTHM AT 83. Patient placed on bedside oxygen, weighed by bedscale and encouraged to call if they need something. All questions and concerns addressed, patient verbalized understanding.
[2019-03-15] MEDS: InsuLIN REG 1unit/0.01ml Soln (100units/ml) SC SCH ×2 (17:00→22:00)
[2019-03-15] MEDS: ACCU-CHEK COMFORT CURVE STRIP VI SCH ×2 (17:32→22:03)
--- NOTE | 2019-03-15 18:46 | NUR ---
CALLED HOSPITALIST LINA MAKI, REGARDING TROPONIN. NO NEW ORDERS RECEIVED.
--- NOTE | 2019-03-15 19:30 | NUR ---
Opening Shift Note Assumed care of patient, awake, alert and oriented x 2, reoriented to time and place. On 2L oxygen via nasal cannula. Ambulatory. No S/S of distress/SOB or pain. Bed in lowest locked position, side rails up x 2, call light within reach. Instructed on POC and to call for assist PRN, will continue to monitor for changes Q1hr and PRN.
[2019-03-15 20:00] VITALS: BP 159/94
[2019-03-15 22:00] VITALS: BP 156/94
[2019-03-16 04:55] VITALS: BP 157/55
[2019-03-16 05:56] LABS: Basophils # (auto) 0 uL; Basophils % (auto) 0.6 % (0.0-2.0); Eosinophils # (auto) 0.5 uL; Eosinophils % (auto) 7.5 % (0.0-7.0); Hematocrit 30.6 % (36.0-46.0); Hemoglobin 10.1 g/dL (12.2-16.2); Lymphocytes # (auto) 1.6 uL; Lymphocytes % (auto) 24.3 % (10.0-50.0); Mean Corpuscular Hgb Conc. 32.9 g/dL (32.0-36.0); Mean Corpuscular Volume 100.2 fL (80.0-100.0); Monocytes # (auto) 0.5 uL; Neutrophils % (auto) 59.6 % (37.0-80.0); Platelet Count (auto) 98 10^3/uL (140-450); Red Blood Cells 3.06 10^6/uL (4.0-5.20); Red Cell Distribution Width 17.4 % (11.8-14.3); White Blood Cell 6.8 10^3/uL (4.4-10.8)
[2019-03-16 06:06] LABS: BUN/Creatinine Ratio 26.4; Calcium 8.1 mg/dL (8.5-10.1); Potassium 4.1 mmol/L (3.5-5.1)
[2019-03-16] MEDS: InsuLIN REG 1unit/0.01ml Soln (100units/ml) SC SCH ×2 (06:23→11:30)
[2019-03-16] MEDS: ACCU-CHEK COMFORT CURVE STRIP VI SCH ×2 (06:23→11:30)
--- NOTE | 2019-03-16 06:46 | NUR ---
Closing shift note Patient resting in bed. No acute S/S of distress/ SOB or pain. Will endorse care to dayshift JUSTINE Minor.
--- NOTE | 2019-03-16 07:30 | NUR ---
Opening Shift Note RECEIVED REPORT FROM NOC RN. Assumed care of patient, awake and alert. PATIENT ON OXYGEN AT 2 LPM VIA NASAL CANNULA WITH no S/S of distress/SOB or pain. BED IN LOWEST, LOCKED POSITION WITH SIDERAILS UP x2. Instructed on POC and to call for assist PRN, will continue to monitor for changes Q1hr and PRN.
[2019-03-16 08:05] VITALS: BP 140/84
[2019-03-16 08:38] VITALS: BP 140/84
[2019-03-16] MEDS: DILTIAZEM 125mg/125ml BAG KIT 100 ML IV SCH (09:25)
[2019-03-16] MEDS ORDERED: PANTOPRAZOLE 40 MG TAB PO SCH (10:00)
[2019-03-16] MEDS ORDERED: CLOPIDOGREL BISULFATE 75 MG TAB PO SCH (10:00)
[2019-03-16] MEDS ORDERED: ASPirin 81 mg TAB PO SCH (10:00)
[2019-03-16] MEDS ORDERED: DILTIAZEM HCL 120MG ER CAP PO SCH (10:00)
[2019-03-16] MEDS ORDERED: ALLOPURINOL 300 MG TAB PO SCH (10:00)
[2019-03-16] MEDS ORDERED: LISINOPRIL 10 MG TAB PO SCH (10:00)
[2019-03-16] MEDS ORDERED: MEMANTINE HCL 5 MG TAB PO SCH (10:00)
--- NOTE | 2019-03-16 11:00 | NUR ---
PATIENT HAVING PERIOD OF CONFUSION. BELIEVES SHE WAS BROUGHT INTO THE HOSPITAL ON Wednesday03/13/19. PATIENT WAS ACTUALLY BROUGHT INTO HOSPITAL ON Wednesday03/15/19 BY CAREGIVER. ATTEMPTED TO REORIENT PATIENT TO TIME AND SITUATION. CAREGIVER, JACK KIRBY, ARRIVED AND WAS ABLE TO REORIENT PATIENT TO TIME AND SITUATION.
[2019-03-16 13:00] VITALS: BP 161/72
[2019-03-16 15:25] VITALS: BP 160/94
[2019-03-16 16:53] VITALS: BP 162/103
--- NOTE | 2019-03-16 17:15 | NUR ---
Discharge instructions given as ordered. Encourage to follow up with PMD as instructed. All questions and concerns addressed. Patient verbalized understanding. Medication reconciliation form completed and copy given to patient. IV removed with catheter intact, pressure dressing applied. Telemetry unit returned to ICU. Patient taken to vehicle via wheelchair with all personal belongings, accompanied by staff and CAREGIVER. No distress noted at time of departure.
[2019-03-17] MEDS ORDERED: DIGOXIN 0.125 MG TAB PO SCH (10:00)
== END 2019-03-16 17:15 | disposition home or self-care (01) | DRG 309 ==
LOC: ER 11:32 → TELE 11:33 → TELE-EAST 16:08
PROVIDERS: ADMIT Nurse Practitioner Acute Care; ATTEND Internal Medicine
DX: I47.1 Supraventricular tachycardia (principal); E44.1 Mild protein-calorie malnutrition; I48.0 Paroxysmal atrial fibrillation; Z68.30 Body mass index [BMI] 30.0-30.9, adult; E11.22 Type 2 diabetes mellitus with diabetic chronic kidney disease; D53.9 Nutritional anemia, unspecified; E66.9 Obesity, unspecified; E78.5 Hyperlipidemia, unspecified; F03.90 Unspecified dementia, unspecified severity, without behavioral disturbance, psychotic disturbance, mood disturbance, and anxiety; I12.9 Hypertensive chronic kidney disease with stage 1 through stage 4 chronic kidney disease, or unspecified chronic kidney disease; I25.10 Atherosclerotic heart disease of native coronary artery without angina pectoris; J44.9 Chronic obstructive pulmonary disease, unspecified; N18.3 Chronic kidney disease, stage 3 (moderate); Z79.4 Long term (current) use of insulin; Z79.82 Long term (current) use of aspirin; Z79.899 Other long term (current) drug therapy; Z82.3 Family history of stroke; Z82.49 Family history of ischemic heart disease and other diseases of the circulatory system; Z82.5 Family history of asthma and other chronic lower respiratory diseases; Z83.3 Family history of diabetes mellitus; Z95.2 Presence of prosthetic heart valve; Z95.0 Presence of cardiac pacemaker; Z90.49 Acquired absence of other specified parts of digestive tract; Z80.9 Family history of malignant neoplasm, unspecified
CPT/HCPCS: 36415; 71045; 80048; 80053; 82962; 83036; 83735; 83880; 84484; 85025; 85610; 85730; 87081; 93005; 93306; 94761; 96374; G0378

== ENCOUNTER 2019-04-03 10:09 | Emergency (ER) | payer OTHER ==
[2019-04-03 11:00] VITALS: BP 137/83
[2019-04-03 11:11] LABS: Basophils # (auto) 0.1 uL; Eosinophils # (auto) 0.2 uL; Eosinophils % (auto) 3.5 % (0.0-7.0); Hematocrit 35.4 % (36.0-46.0); Hemoglobin 11.7 g/dL (12.2-16.2); Lymphocytes # (auto) 0.9 uL; Lymphocytes % (auto) 12.4 % (10.0-50.0); Mean Corpuscular Hemoglobin 32.8 pg (28.0-32.0); Mean Corpuscular Hgb Conc. 32.9 g/dL (32.0-36.0); Mean Corpuscular Volume 99.5 fL (80.0-100.0); Monocytes # (auto) 0.4 uL; Neutrophils # (auto) 5.3 uL; Neutrophils % (auto) 77.1 % (37.0-80.0); Platelet Count (auto) 145 10^3/uL (140-450); Red Blood Cells 3.56 10^6/uL (4.0-5.20); Red Cell Distribution Width 16.8 % (11.8-14.3); White Blood Cell 6.9 10^3/uL (4.4-10.8)
[2019-04-03 11:18] LABS: Urine Bacteria NONE SEEN /hpf (None Seen); Urine Blood Negative /uL (Negative); Urine Specific Gravity 1.014 (1.001-1.035); Urine WBC 2 /hpf (0 - 5)
[2019-04-03 11:19] LABS: Alanine Aminotransferase 13 U/L (13-56); Albumin 3.1 g/dL (3.4-5.0); Aspartate Aminotransferase 12 U/L (15-37); BUN/Creatinine Ratio 23.1; Blood Urea Nitrogen 31 mg/dL (7-18); Calcium 8.3 mg/dL (8.5-10.1); Carbon Dioxide 20 mmol/L (21-32); GFR African American 48 mL/min; GFR Non-African American 40 mL/min; Glucose 127 mg/dL (74-106); Magnesium 2.2 mg/dL (1.6-2.6)
[2019-04-03 11:28] LABS: Alkaline Phosphatase 131 U/L (45-117); Bilirubin, Total 0.3 mg/dL (0.2-1.0); Total Protein 6.7 g/dL (6.4-8.2)
[2019-04-03 11:35] LABS: Chloride 113 mmol/L (98-107); Potassium 4.8 mmol/L (3.5-5.1); Sodium 141 mmol/L (136-145)
[2019-04-03 11:49] LABS: Anion Gap 8 (5-15)
== END 2019-04-03 11:58 | disposition home or self-care (01) ==
LOC: EDBD 10:09 → ER 10:09
DX: I12.9 Hypertensive chronic kidney disease with stage 1 through stage 4 chronic kidney disease, or unspecified chronic kidney disease (principal); E11.22 Type 2 diabetes mellitus with diabetic chronic kidney disease; N18.3 Chronic kidney disease, stage 3 (moderate); N39.0 Urinary tract infection, site not specified; E78.5 Hyperlipidemia, unspecified; I25.2 Old myocardial infarction; Z86.73 Personal history of transient ischemic attack (TIA), and cerebral infarction without residual deficits; Z90.89 Acquired absence of other organs; Z95.0 Presence of cardiac pacemaker
CPT/HCPCS: 36415; 70450; 71045; 80053; 81001; 83735; 84484; 85025; 93005; 94761

== ENCOUNTER → 2019-06-12 | Outpatient (CLI) | payer OTHER ==
[2019-06-12 11:32] LABS: Basophils # (auto) 0 uL; Basophils % (auto) 0.6 % (0.0-2.0); Eosinophils # (auto) 0.3 uL; Eosinophils % (auto) 3.6 % (0.0-7.0); Hematocrit 39.9 % (36.0-46.0); Hemoglobin 12.9 g/dL (12.2-16.2); Lymphocytes # (auto) 1.3 uL; Lymphocytes % (auto) 16.4 % (10.0-50.0); Mean Corpuscular Hemoglobin 30.9 pg (28.0-32.0); Mean Corpuscular Hgb Conc. 32.3 g/dL (32.0-36.0); Mean Corpuscular Volume 95.7 fL (80.0-100.0); Monocytes # (auto) 0.5 uL; Monocytes % (auto) 7.1 % (0.0-12.0); Neutrophils # (auto) 5.5 uL; Neutrophils % (auto) 72.3 % (37.0-80.0); Nucleated Red Blood Cells % 0.1 %; Platelet Count (auto) 182 10^3/uL (140-450); Red Blood Cells 4.17 10^6/uL (4.0-5.20); Red Cell Distribution Width 15.4 % (11.8-14.3); White Blood Cell 7.7 10^3/uL (4.4-10.8)
[2019-06-12 11:35] LABS: Urine Bacteria NONE SEEN /hpf (None Seen); Urine Blood Negative /uL (Negative); Urine Hyaline Cast FEW /lpf (0 - 2); Urine Specific Gravity 1.017 (1.001-1.035); Urine WBC <1 /hpf (0 - 5)
[2019-06-12 13:08] LABS: Albumin 3.5 g/dL (3.4-5.0); BUN/Creatinine Ratio 19.8; Bilirubin, Total 0.7 mg/dL (0.2-1.0); Calcium 8.9 mg/dL (8.5-10.1); Potassium 4.3 mmol/L (3.5-5.1); Total Protein 7.1 g/dL (6.4-8.2)
== END | disposition home or self-care (01) ==
LOC: LAB 10:42
PROVIDERS: ATTEND Physician Assistant
DX: E78.5 Hyperlipidemia, unspecified (principal); I10 Essential (primary) hypertension; I49.5 Sick sinus syndrome; M15.0 Primary generalized (osteo)arthritis; F11.229 Opioid dependence with intoxication, unspecified
CPT/HCPCS: 36415; 80053; 80061; 81001; 83036; 85025

== ENCOUNTER 2019-08-19 11:02 | Emergency (ER) | payer OTHER ==
[~2019-08-19] VITALS: Ht 167.6 cm; Wt 74.8 kg
[~2019-08-19 11:02] MED LIST changes: -MEMA1TAB2 PO; +MEMA1TAB5 PO
[2019-08-19 11:27] VITALS: BP 140/97
[2019-08-19] MEDS ORDERED: HYDROcodone-ACET 5/325MG TAB PO ONE (14:30)
== END 2019-08-19 15:15 | disposition home or self-care (01) ==
LOC: EDBD 11:02 → ER 11:06
DX: M75.31 Calcific tendinitis of right shoulder (principal); I12.9 Hypertensive chronic kidney disease with stage 1 through stage 4 chronic kidney disease, or unspecified chronic kidney disease; E11.22 Type 2 diabetes mellitus with diabetic chronic kidney disease; N18.9 Chronic kidney disease, unspecified; Z90.89 Acquired absence of other organs; Z95.0 Presence of cardiac pacemaker; X50.9XXA Other and unspecified overexertion or strenuous movements or postures, initial encounter; Y93.89 Activity, other specified; Y99.8 Other external cause status; Y92.89 Other specified places as the place of occurrence of the external cause
CPT/HCPCS: 73030